=== PATIENT | female | born 1930 | race Caucasian/White ===

== ENCOUNTER 2016-11-13 20:40 | Emergency (ER) | payer MEDICARE, OTHER ==
[~2016-11-13] VITALS: Ht 134.6 cm; Wt 68.0 kg
[~2016-11-13 20:40] MED LIST: ACET325T53 GT; ASCO500T20 GT; CAT2PAT TD; ENAL10TA GT; FER300L GT; HYDR-1189 GT; MERI500 IV; METO-442 GT; METO50TA3 GT; MULT-1117 GT; PANT40SU2 GT; SACC250C3 GT
[2016-11-13 21:30] VITALS: BP 153/82; PULSE 60; RESP 18; TEMP 98.4; O2SAT 95
--- NOTE | 2016-11-13 21:30 | NUR ---
Placed in room 7 . Placed on laboratory monitor, blood pressure machine and pulse oximeter. To gown for exam. Side rails up.
--- NOTE | 2016-11-13 21:45 | NUR ---
Pt BIB ambulance from [facility] for G-tube replacement, according to daughter, pt had h/o pulling out her G-tube in the past, but this time the G-tube came out by itself . Pt disoriented, bilateral lower extremities amputated, catheter in place to prevent closure of G-tube access prior to ED arrival . No sign of distress. Will continue to monitor
--- NOTE | 2016-11-13 22:11 | NUR ---
MD rodarte at bedside examining pt
[2016-11-13] MEDS ORDERED: GASTROGRAFIN 120 ML ONE (22:26)
[2016-11-13 23:20] VITALS: BP 142/76; PULSE 66; RESP 16; TEMP 98.4; O2SAT 96
--- NOTE | 2016-11-13 23:20 | NUR ---
Patient given written and verbal discharge instructions and verbalizes understanding. ER MD Shaw discussed with patient the results and treatment provided. Patient in stable condition. ID arm band removed. No Rx given. Patient educated on pain management and to follow up with PMD. Pain Scale 0/10 Opportunity for questions provided and answered.
== END 2016-11-13 23:20 | disposition home or self-care (01) ==
LOC: SED 20:40
DX: Z43.1 Encounter for attention to gastrostomy (principal); J44.9 Chronic obstructive pulmonary disease, unspecified; F03.90 Unspecified dementia, unspecified severity, without behavioral disturbance, psychotic disturbance, mood disturbance, and anxiety; I12.9 Hypertensive chronic kidney disease with stage 1 through stage 4 chronic kidney disease, or unspecified chronic kidney disease; N18.9 Chronic kidney disease, unspecified
CPT/HCPCS: 43760; 74240; 99284; Q9963

== ENCOUNTER 2017-07-13 11:47 | Emergency (ER) | payer OTHER ==
[~2017-07-13] VITALS: Ht 157.5 cm; Wt 56.7 kg
[~2017-07-13 11:47] MED LIST changes: -METO50TA3 GT
[2017-07-13 12:02] VITALS: BP_SYST 156
[2017-07-13] MEDS ORDERED: GASTROGRAFIN 120 ML ONE (14:50)
[2017-07-13 16:26] VITALS: BP_SYST 139
== END 2017-07-13 16:26 | disposition home or self-care (01) ==
LOC: SED 11:47
DX: Z43.1 Encounter for attention to gastrostomy (principal); J44.9 Chronic obstructive pulmonary disease, unspecified; I12.9 Hypertensive chronic kidney disease with stage 1 through stage 4 chronic kidney disease, or unspecified chronic kidney disease; N18.9 Chronic kidney disease, unspecified; F03.90 Unspecified dementia, unspecified severity, without behavioral disturbance, psychotic disturbance, mood disturbance, and anxiety; Z79.899 Other long term (current) drug therapy
CPT/HCPCS: 43760; 74240; 99284; Q9963

== ENCOUNTER 2017-12-27 08:34 | Emergency (ER) | payer OTHER ==
[2017-12-27 08:34] VITALS: BP_SYST 149
[2017-12-27] MEDS ORDERED: GASTROGRAFIN 120 ML ONE (09:20)
[2017-12-27 09:58] LABS: BASOPHILS % (AUTO) 0.6 % (0.0-2.0); EOSINOPHILS # (AUTO) 0.1 K/uL (0.0-0.4); EOSINOPHILS % (AUTO) 2.8 % (0.0-4.0); HEMATOCRIT 39.6 % (36-48); HEMOGLOBIN 13.1 g/dL (12.0-16.0); LYMPHOCYTES % (AUTO) 18.6 % (20.5-51.5); MEAN CORPUSCULAR HEMOGLOBIN 30 pg (27-31); MEAN CORPUSCULAR HGB CONC 33 % (32-36); MEAN CORPUSCULAR VOLUME 92 fL (79.0-98.0); MONOCYTES # (AUTO) 0.5 K/uL (0.0-1.0); MONOCYTES % (AUTO) 10.5 % (1.7-9.3); NEUTROPHILS # (AUTO) 3.6 K/uL (1.8-7.7); NEUTROPHILS % (AUTO) 67.5 % (40.0-70.0); PLATELET COUNT (AUTO) 241 K/uL (130-430); RED BLOOD CELL COUNT(AUTO) 4.31 MIL/uL (4.2-6.2); RED CELL DISTRIBUTION WIDTH 13.9 % (9.0-15.0); WHITE BLOOD COUNT (AUTO) 5.2 K/uL (4.8-10.8)
[2017-12-27 10:19] LABS: ANION GAP 3 (5-15); CALCIUM 9.2 mg/dL (8.4-11.0); CHLORIDE 106 mmol/L (98-107); CREATININE 0.53 mg/dL (0.55-1.30); GLUCOSE 84 mg/dL (70-99); POTASSIUM 3.7 mmol/L (3.5-5.1); SODIUM SERUM 140 mmol/L (136-145); UREA NITROGEN, BLOOD 26 mg/dL (8-21)
[2017-12-27 10:20] LABS: PROTHROMBIN TIME 10.3 SECS (9.5-12.5)
[2017-12-27 10:24] LABS: ALANINE AMINOTRANSFERASE 15 U/L (12-78); ALBUMIN 2.7 g/dL (3.4-4.8); ASPARTATE AMINOTRANSFERASE 16 U/L (10-37); TOTAL BILIRUBIN 0.3 mg/dL (0.0-1.0)
[2017-12-27 11:54] VITALS: BP_SYST 127
== END 2017-12-27 11:54 | disposition home or self-care (01) ==
LOC: SED 08:34
DX: Z43.1 Encounter for attention to gastrostomy (principal); J44.9 Chronic obstructive pulmonary disease, unspecified; I12.9 Hypertensive chronic kidney disease with stage 1 through stage 4 chronic kidney disease, or unspecified chronic kidney disease; N18.9 Chronic kidney disease, unspecified; F03.90 Unspecified dementia, unspecified severity, without behavioral disturbance, psychotic disturbance, mood disturbance, and anxiety; Z79.899 Other long term (current) drug therapy
CPT/HCPCS: 36415; 43760; 74240; 80053; 85025; 85610; 85730; 99285; Q9963

== ENCOUNTER 2018-09-14 22:53 | Inpatient (IN) | payer OTHER ==
[~2018-09-14] VITALS: Ht 142.2 cm; Wt 58.5 kg
[2018-09-14 22:55] VITALS: BP_SYST 116
--- NOTE | 2018-09-14 22:55 | NUR ---
Placed in room 01. Placed on case monitor, blood pressure machine and pulse oximeter. To gown for exam. Side rails up. Report given to [facility].
[2018-09-14] MEDS ORDERED: NACL 0.9% 1,000 ML IV ONE (23:00)
--- NOTE | 2018-09-14 23:00 | NUR ---
Pt came to the ED via EMS from [facility] to the ED for AMS and hypotension. Per EMS, BP was 75/45 in the field and was given 250 mL which raised it to 94/60. Per EMS A&O x1. Per EMS denies falls. Due to pts AMS, pt is poor historian. No other complaints/injuries noted. Will cont. to monitor.
--- NOTE | 2018-09-14 23:05 | NUR ---
GABRIEL Lee at bedside examining patient.
--- NOTE | 2018-09-14 23:15 | NUR ---
# 16 FR Ratliff catheter with use of sterile technique. Immediate return of 500 cc yello urine noted. Bedside drainage bag placed below level of bladder. Urine sample collected and sent to lab. Pt tolerated procedure well. Patient arrived with ratliff in place, changed due to standard of practice prior to admission. Patient unable to toilet self.
[2018-09-14 23:31] LABS: BILIRUBIN,URINE NEGATIVE (NEGATIVE); BLOOD, URINE NEGATIVE (NEGATIVE); CLARITY/URINE HAZY (CLEAR); COLOR,URINE YELLOW (YELLOW); GLUCOSE,URINE NEGATIVE (NEGATIVE); KETONES,URINE NEGATIVE (NEGATIVE); LEUKOCYTE ESTERASE ,URINE NEGATIVE (NEGATIVE); NITRITE, URINE NEGATIVE (NEGATIVE); PH,URINE 6.5 (5.0-8.0); PROTEIN URINE NEGATIVE (NEGATIVE); UROBILINOGEN,URINE 0.2 (0.2-1.0)
[2018-09-14 23:37] LABS: ANION GAP 4 (5-15); CHLORIDE 108 mmol/L (98-107); CREATININE 1.18 mg/dL (0.55-1.30); GLUCOSE 129 mg/dL (70-99); POTASSIUM 4.7 mmol/L (3.5-5.1); SODIUM SERUM 141 mmol/L (136-145); UREA NITROGEN, BLOOD 34 mg/dL (8-21)
[2018-09-14 23:43] LABS: ALANINE AMINOTRANSFERASE 30 U/L (12-78); ALBUMIN 2.3 g/dL (3.4-4.8); ASPARTATE AMINOTRANSFERASE 15 U/L (10-37); TOTAL BILIRUBIN 0.2 mg/dL (0.0-1.0)
[2018-09-14 23:46] LABS: HEMATOCRIT 35.8 % (36-48); HEMOGLOBIN 11.8 g/dL (12.0-16.0); LYMPHOCYTES % (AUTO) 19.6 % (20.5-51.5); MEAN CORPUSCULAR HEMOGLOBIN 32 pg (27-31); MEAN CORPUSCULAR HGB CONC 33 % (32-36); MEAN CORPUSCULAR VOLUME 95 fL (79.0-98.0); MONOCYTES % (AUTO) 11.4 % (1.7-9.3); NEUTROPHILS % (AUTO) 65.5 % (40.0-70.0); PLATELET COUNT (AUTO) 190 K/uL (130-430); RED BLOOD CELL COUNT(AUTO) 3.76 MIL/uL (4.2-6.2); RED CELL DISTRIBUTION WIDTH 13.8 % (9.0-15.0); WHITE BLOOD COUNT (AUTO) 5.6 K/uL (4.8-10.8)
[2018-09-14 23:47] LABS: BASOPHILS % (AUTO) 0.4 % (0.0-2.0); EOSINOPHILS # (AUTO) 0.2 K/uL (0.0-0.4); EOSINOPHILS % (AUTO) 3.1 % (0.0-4.0); LYMPHOCYTES # (AUTO) 1.1 K/uL (1.0-5.5); MONOCYTES # (AUTO) 0.6 K/uL (0.0-1.0); NEUTROPHILS # (AUTO) 3.6 K/uL (1.8-7.7)
[2018-09-14 23:51] LABS: INR 1.1 (0.8-1.2); PROTHROMBIN TIME 11.2 SECS (9.5-12.5)
[2018-09-15] MEDS ORDERED: PIPERACILLIN/TAZO 3.375 GM in NS 50 ML IV ONE ×2
[2018-09-15] MEDS ORDERED: PIPERACILLIN/TAZOBACTAM 3.375 GM/VIAL (ZOSYN) IV ONE (00:24)
--- NOTE | 2018-09-15 00:55 | NUR ---
Pt started on zosyn IV per MD order. Tolerated well. WIll cont. to monitor.
[2018-09-15] MEDS ORDERED: NACL 0.9% 1,000 ML IV ONE (01:00)
--- NOTE | 2018-09-15 01:00 | NUR ---
Daughter gave number [phone] [phone]
--- NOTE | 2018-09-15 02:15 | NUR ---
Patient will be admitted to care of Dr. Astorga. Admitted to TELE unit. Will go to room 132C. Belongings list completed. Summary report printed. Report will be given at bedside.
[2018-09-15] MEDS ORDERED: ACETAMINOPHEN 325 MG TABLET PO PRN (02:30)
[2018-09-15] MEDS ORDERED: KCL 20 mEq in D5NS 1000 mL 1,000 ML IV SCH (02:30)
[2018-09-15 02:34] VITALS: BP_SYST 115
--- NOTE | 2018-09-15 02:34 | NUR ---
ADMISSION NOTE Received patient from ER via siri, received report from [facility]. Patient admitted with diagnosis of HYPOTENTION, DEHYDRATION, POSSIBLE SEPSIS. Patient oriented to hospital routine, call light, toileting and safety-patient verbalized understanding.
--- NOTE | 2018-09-15 02:34 | NUR ---
Transfer to Tele via ACLS protocol. Licensed nurse present. IV present no signs or symptoms of infiltration.
[2018-09-15] MEDS ORDERED: TYLL650 GT (02:57)
[2018-09-15] MEDS ORDERED: ENAL10TA GT (03:04)
[2018-09-15] MEDS ORDERED: HYDR-3606 GT (03:04)
[2018-09-15] MEDS ORDERED: CAT2PAT TD (03:04)
[2018-09-15 03:09] VITALS: BP_SYST 115
[2018-09-15] MEDS ORDERED: ACETAMINOPHEN 650 MG/20.3 ML UDC GT PRN (05:15)
[2018-09-15] MEDS ORDERED: ACETAMINOPHEN 325 MG TABLET GT SCH (05:15)
[2018-09-15] MEDS ORDERED: HYDROcodone/ACETAMIN 5-325 MG TAB (NORCO/ VICODIN) GT PRN (05:15)
[2018-09-15] MEDS: D5/0.45 NS 1,000 ML IV SCH ×3 (05:31→20:31)
[2018-09-15] MEDS: PANTOPRAZOLE GRANULES PACKET 40 MG GT SCH (06:18)
--- NOTE | 2018-09-15 06:30 | NUR ---
pt.received from [place].pt.presents asphasic;non-verbal status.pt.presents upper extremities contracted,lower extremites: amputations;rt.bka/lt.aka.no prosthesis present.pt.preset g-tube.pt.presents iv access;lt.forearm/rt.antecubital fossa.iv lock pt.requires o2 therapy;o2-administered@2l/mn via nasal cannuale.pt.presents dermatitis;profuse distribution.pt.presents denuded skin;rt.stump;posterior/inferior surface.i have attended to placement:opti-foam dsg. presents.reviewing the orders/pt.assessment.i have initiated the iv fluids. order to contine w/g-tube feed per facility med-list.nsg to await dietary to supply g-tube feed.pt.cleaned.pt.repositioned:q-2hrs per protocol.call light/telephone placed w/in the pt's reached.
[2018-09-15 07:01] LABS: ANION GAP 8 (5-15); CALCIUM 8.2 mg/dL (8.4-11.0); CHLORIDE 111 mmol/L (98-107); CREATININE 0.82 mg/dL (0.55-1.30); GLUCOSE 97 mg/dL (70-99); POTASSIUM 4.3 mmol/L (3.5-5.1); SODIUM SERUM 143 mmol/L (136-145); UREA NITROGEN, BLOOD 28 mg/dL (8-21)
[2018-09-15 07:11] LABS: HEMATOCRIT 42.1 % (36-48); RED BLOOD CELL COUNT(AUTO) 4.34 MIL/uL (4.2-6.2); WHITE BLOOD COUNT (AUTO) 8.6 K/uL (4.8-10.8)
[2018-09-15 07:12] LABS: BASOPHILS % (AUTO) 0.2 % (0.0-2.0); EOSINOPHILS # (AUTO) 0.2 K/uL (0.0-0.4); EOSINOPHILS % (AUTO) 1.8 % (0.0-4.0); LYMPHOCYTES # (AUTO) 0.6 K/uL (1.0-5.5); LYMPHOCYTES % (AUTO) 6.5 % (20.5-51.5); MEAN CORPUSCULAR HEMOGLOBIN 32 pg (27-31); MEAN CORPUSCULAR HGB CONC 33 % (32-36); MEAN CORPUSCULAR VOLUME 97 fL (79.0-98.0); MONOCYTES # (AUTO) 0.4 K/uL (0.0-1.0); MONOCYTES % (AUTO) 4.2 % (1.7-9.3); NEUTROPHILS # (AUTO) 7.5 K/uL (1.8-7.7); NEUTROPHILS % (AUTO) 87.3 % (40.0-70.0); PLATELET COUNT (AUTO) 176 K/uL (130-430); RED CELL DISTRIBUTION WIDTH 13.5 % (9.0-15.0)
[2018-09-15 07:13] LABS: ALANINE AMINOTRANSFERASE 29 U/L (12-78); ALBUMIN 2.3 g/dL (3.4-4.8); ASPARTATE AMINOTRANSFERASE 17 U/L (10-37); TOTAL BILIRUBIN 0.3 mg/dL (0.0-1.0)
--- NOTE | 2018-09-15 07:17 | NUR ---
Nutrition Update Tyshawn Scale 11 noted. Pt admitted for hypotension, dehydration, possible sepsis Diet: tube feeding BMI:28.9 kg/m2 RD to follow per nutrition care standards.
--- NOTE | 2018-09-15 07:47 | NUR ---
OPENING NOTE PT IN BED EYES CLOSED - EQUAL CHEST RISE NOTED, CALL LIGHT VISIBLY WITHIN REACH, BED ALARM IN PLACE WITH BED IN THE LOWEST POSITION.
[2018-09-15 08:00] VITALS: BP_SYST 141
[2018-09-15] MEDS ORDERED: CEFTRIAXONE SOD 1 GM/ DEXTROSE,ISO 50 ML PREMIX IV SCH (08:00)
[2018-09-15] MEDS: MULTIVITAMINS TAB 1 TABLET GT SCH (08:50)
[2018-09-15] MEDS: LACTOBACILLUS RHAMNOSUS GG 1 CAP CAPSULE GT SCH ×2 (08:50→20:31)
[2018-09-15] MEDS: ASCORBIC ACID 500 MG TABLET GT SCH (08:50)
[2018-09-15] MEDS ORDERED: cefTRIAXone 1 GM VIAL IV SCH (09:00)
[2018-09-15] MEDS: CEFTRIAXONE SOD 1 GM/ DEXTROSE,ISO 50 ML PREMIX IV SCH (09:11)
[2018-09-15] MEDS: FERROUS SULFATE 300 MG/5 ML UDC GT SCH ×2 (09:14→20:31)
--- NOTE | 2018-09-15 09:38 | NUR ---
am meds morning meds given via gtube, pt tolerated well, ivpb rocephin also hung at ths time. gtube feeding in place running at 40ml/hr per md orders.
--- NOTE | 2018-09-15 11:35 | NUR ---
Dietitian Recommendations *Recommend Jevity 1.2 at 50ml/hr, FWF 100ml Q6H via GT Provides: 1440 kcal, 67 gm protein and 1368ml free water daily. Meets: 81% of upper end of estimated calorie needs and 94% of lower end of estimated protein needs. Please see Nutritional Assessment for details. MCFP, RD
[2018-09-15 11:50] VITALS: BP_SYST 140
--- NOTE | 2018-09-15 12:32 | NUR ---
ROUNDS PT RESTING - EQUAL CHEST RISE NOTED, NO DISTRESS, SAFETY PRECAUTIONS MAINTAINED.
--- NOTE | 2018-09-15 15:55 | NUR ---
pt is in bed awake , no distress noted, safety maintained
--- NOTE | 2018-09-15 17:00 | NUR ---
ROUNDS PT ASLEEP, EQUAL CHEST RISE NOTED, SAFETY MAINTAINED.
[2018-09-15 18:12] VITALS: BP_SYST 132
--- NOTE | 2018-09-15 19:14 | NUR ---
CLOSING NOTE ALL NEEDS MET THROUGH SHIFT, SAFETY MAINTAINED, CARE ENDORSED TO COOPER APPRENTICE RN
--- NOTE | 2018-09-15 19:25 | NUR ---
OPENING NOTE RECEIVED CARE OF PT AND BEDSIDE REPORT. PT CONFUSED, SITTING IN BED. BREATHING IS UNLABORED TO 2L O2 VIA NASAL CANNULA. IVF INFUSING AT ORDERED RATE. TUBE FEEDING RUNNING AT 40 CC/HR. SAFETY PRECAUTIONS MAINTAINED: BED IN LOWEST POSITION, CALL LIGHT WITH PT, SIDE RAILS UPX3, BED ALARM ON, CLOSE TO NURSING STATION. WILL MONITOR
[2018-09-15 20:00] VITALS: BP_SYST 140
--- NOTE | 2018-09-15 20:31 | NUR ---
SCHEDULED MEDICATIONS SCHEDULED MEDICATIONS ADMINISTERED VIA GTUBE. GTUBE IS PATENT AND FLUSHING WELL. PT TOLERATED WELL. NO SIGNS OF DISTRESS. PT APPEARS COMFORTABLE. SAFETY PRECAUTIONS IN PLACE. WILL MONITOR.
--- NOTE | 2018-09-15 21:30 | NUR ---
FREE WATER FLUSH GTUBE IS FLUSHING WELL. NO SIGN OF DISTRESS NOTED. BREATHING IS UNLABORED TO O2 AT 2LITERS VIA NASAL CANNULA. WARD CATHETER IS DRAINING WELL TO GRAVITY. IVF INFUSING. SAFETY PRECAUTIONS IN PLACE. WILL MONITOR.
--- NOTE | 2018-09-15 23:30 | NUR ---
RN ROUNDS PT RESTING IN BED, CONFUSED AND AWAKE. BREATHING IS UNLABORED TO O2 AT 2 LITERS VIA NASAL CANNULA. IVF INFUSING ORDERED. TUBE FEEDING IS RUNNING AT 40 ML/HR. SAFETY PRECAUTIONS MAINTAINED. WILL MONITOR.
--- NOTE | 2018-09-16 01:35 | NUR ---
RN ROUNDS PT RESTING IN BED WITH EYES CLOSED. VISIBLE SYMMETRICAL RISE AND FALL OF CHEST TO O2 AT 2 LITERS VIA NASAL CANNULA. NO SIGNS OF DISTRESS, PT APPEARS COMFORTABLE. WARD CATHETER DRAINING WELL TO GRAVITY. TUBE FEEDING RUNNING ORDER. IVF INFUSING AT ORDERED RATE. SAFETY PRECAUTIONS IN PLACE. WILL MONITOR.
[2018-09-16 02:24] VITALS: BP_SYST 145
--- NOTE | 2018-09-16 03:30 | NUR ---
FREE WATER FLUSH PT RESTING IN BED, APPEARS COMFORTABLE. BREATHING IS UNLABORED TO OXYGEN AT 2 LITERS VIA NASAL CANNULA. PT GIVEN 100 ML FREE WATER FLUSH. GTUBE IS PATENT AND FLUSHING WELL. WARD CATHETER IS INTACT AND DRAINING WELL TO GRAVITY. IVF INFUSING, NO SIGN OF INFILTRATION AT IV SITE. TUBE FEEDING RUNNING AT ORDERED RATE. SAFETY PRECAUTIONS OBSERVED. WILL MONITOR.
[2018-09-16] MEDS: PANTOPRAZOLE GRANULES PACKET 40 MG GT SCH (05:59)
--- NOTE | 2018-09-16 06:00 | NUR ---
SCHEDULED PROTONIX SCHEDULED PROTONIX ADMINISTERED THROUGH GTUBE. GTUBE IS PATENT AND FLUSHING WELL. PT RESTING COMFORTABLY IN BED, NO S/S OF DISTRESS. BREATHING IS UNLABORED TO O2 AT 2 LITERS VIA NASAL CANNULA. WARD CATHETER IS DRAINING WELL TO GRAVITY. IVF INFUSING AT ORDERED RATE. TUBE FEEDING RUNNING ORDERED. SAFETY PRECAUTIONS IN PLACE. WILL MONITOR.
--- NOTE | 2018-09-16 06:32 | NUR ---
CLOSING NOTE ALL NEEDS MET THROUGHOUT SHIFT. SAFETY MAINTAINED. WILL ENDORSE CARE TO DAY SHIFT RN.
--- NOTE | 2018-09-16 07:12 | NUR ---
Opening Note patient resting in bed, eyes closed, breathing unlabored and symmetrical, no signs of distress at this time, safety precautions in place, call light and bedside table left within reach, room close to station, will continue to monitor
[2018-09-16 07:54] LABS: ALANINE AMINOTRANSFERASE 27 U/L (12-78); ALBUMIN 2.3 g/dL (3.4-4.8); ANION GAP 4 (5-15); ASPARTATE AMINOTRANSFERASE 23 U/L (10-37); CALCIUM 8.2 mg/dL (8.4-11.0); CHLORIDE 108 mmol/L (98-107); CREATININE 0.52 mg/dL (0.55-1.30); GLUCOSE 133 mg/dL (70-99); POTASSIUM 3.6 mmol/L (3.5-5.1); SODIUM SERUM 137 mmol/L (136-145); TOTAL BILIRUBIN 0.3 mg/dL (0.0-1.0); UREA NITROGEN, BLOOD 16 mg/dL (8-21)
[2018-09-16 07:56] LABS: HEMATOCRIT 35.5 % (36-48); HEMOGLOBIN 11.9 g/dL (12.0-16.0); MEAN CORPUSCULAR VOLUME 94 fL (79.0-98.0); RED BLOOD CELL COUNT(AUTO) 3.78 MIL/uL (4.2-6.2); WHITE BLOOD COUNT (AUTO) 3.6 K/uL (4.8-10.8)
[2018-09-16 07:57] LABS: BASOPHILS % (AUTO) 0.3 % (0.0-2.0); EOSINOPHILS # (AUTO) 0.1 K/uL (0.0-0.4); EOSINOPHILS % (AUTO) 1.5 % (0.0-4.0); LYMPHOCYTES # (AUTO) 0.4 K/uL (1.0-5.5); LYMPHOCYTES % (AUTO) 11.5 % (20.5-51.5); MEAN CORPUSCULAR HEMOGLOBIN 32 pg (27-31); MEAN CORPUSCULAR HGB CONC 34 % (32-36); MONOCYTES # (AUTO) 0.5 K/uL (0.0-1.0); MONOCYTES % (AUTO) 14.1 % (1.7-9.3); NEUTROPHILS # (AUTO) 2.6 K/uL (1.8-7.7); NEUTROPHILS % (AUTO) 72.6 % (40.0-70.0); PLATELET COUNT (AUTO) 167 K/uL (130-430); RED CELL DISTRIBUTION WIDTH 13.6 % (9.0-15.0)
--- NOTE | 2018-09-16 08:53 | NUR ---
IV RE-INSERTION: Patient is confused removed her IV cannula , Restarted on left wrist. Successfulafter 1 attempt. Resumed current IVF , Will observe for any signs of infiltration.
[2018-09-16] MEDS: LACTOBACILLUS RHAMNOSUS GG 1 CAP CAPSULE GT SCH ×2 (09:28→20:32)
[2018-09-16] MEDS: MULTIVITAMINS TAB 1 TABLET GT SCH (09:28)
[2018-09-16] MEDS: FERROUS SULFATE 300 MG/5 ML UDC GT SCH ×2 (09:28→20:26)
[2018-09-16] MEDS: ASCORBIC ACID 500 MG TABLET GT SCH (09:28)
[2018-09-16] MEDS: CEFTRIAXONE SOD 1 GM/ DEXTROSE,ISO 50 ML PREMIX IV SCH (09:29)
--- NOTE | 2018-09-16 09:45 | NUR ---
Medication Administration educated patient regarding meds, unable to verbalize understanding, g-tube had 0 residual, flushed before and after meds, IV site remains patent, no other needs at this time, safety precautions remain in place, will continue to monitor
[2018-09-16 09:52] VITALS: BP_SYST 179
--- NOTE | 2018-09-16 09:52 | NUR ---
Paged Dr. Acosta to report increased BP, will await call back
--- NOTE | 2018-09-16 11:05 | NUR ---
Spoke with Dr. Acosta & Pharmacy informed him of patient's BP and informed him of medications patient takes at home for BP. MD ordered med, spoke with pharmacy and [facility] stated that unable to administer sustained release through G-tube, gave recommendation, will inform MD
--- NOTE | 2018-09-16 11:40 | NUR ---
Paged Dr. Acosta at this time, awaiting call back
[2018-09-16] MEDS: D5/0.45 NS 1,000 ML IV SCH (11:53)
[2018-09-16 12:02] VITALS: BP_SYST 164
--- NOTE | 2018-09-16 12:05 | NUR ---
New Bag of Fluids Hung at this time, patient tolerated well, IV site remains patent, repositioned in bed, no complaints of pain she is calm at this time, safety precautions remain in place, will continue to monitor
[2018-09-16] MEDS ORDERED: METOPROLOL TARTRATE 25 MG TABLET GT ONE (13:00)
--- NOTE | 2018-09-16 14:06 | NUR ---
Spoke with Daughter Nida Calderon over the phone, updated her with patient status, no other questions at this time, informed she can call if she has further questions
--- NOTE | 2018-09-16 15:44 | NUR ---
Spoke with Corky Regarding Flu Status stated that patient has not received vaccine and that family has refused flu vaccine for patient, updated charge nurse Magdalena
[2018-09-16 16:24] VITALS: BP_SYST 155
--- NOTE | 2018-09-16 17:40 | NUR ---
Dr. Acosta Rounds Informed him of patient's increased BP, informed him that BP med was administered at 1300 and patient's BP remains elevated, verbalized understanding and stated will implement orders, also asked about DVT prophylaxis, stated will explore options for possible DVT prophylaxis
--- NOTE | 2018-09-16 18:48 | NUR ---
Closing Note patient resting in bed, awake and alert, no signs of distress, IV site patent and g-tube infusing, patient confused, safety precautions remain in place, bed alarm on, will endorse to farm boss nurse
--- NOTE | 2018-09-16 19:21 | NUR ---
OPENING NOTE RECEIVED CARE OF PT AND BEDSIDE REPORT. PT CONFUSED AND AWAKE, SITTING UP IN BED, NO S/S OF DISTRESS. PT BREATHING UNLABORED TO ROOM AIR. WARD CATHETER DRAINING WELL TO GRAVITY, TUBE FEEDING RUNNING AT ORDERED RATE, IVF INFUSING. SAFETY PRECAUTIONS IN PLACE: BED IN LOWEST POSITION, CALL LIGHT WITH PT, SIDE RAILS UP X 3, BED ALARM ON, CLOSE TO NURSING STATION. WILL MONITOR.
[2018-09-16 20:00] VITALS: BP_SYST 112
[2018-09-16] MEDS: ENALAPRIL MALEATE 10 MG TABLET (VASOTEC) GT SCH (20:32)
[2018-09-16] MEDS: METOPROLOL TARTRATE 25 MG TABLET GT SCH (20:32)
[2018-09-16] MEDS: cloNIDine HCL 0.2 MG/24 HR PATCH.TDWK TD SCH (20:33)
--- NOTE | 2018-09-16 22:00 | NUR ---
PULLED OUT IV PT CONFUSED AND PULLED OUT IV. SAFETY PRECAUTIONS MAINTAINED. WILL PLACE NEW IV.
--- NOTE | 2018-09-16 23:00 | NUR ---
IV RE-INSERTION: Restarted IV on LEFT FOREARM. Successful after MULTIPLE attempts. Resumed current IVF of D51/2NS and regulated @ 30 ML per hour. Will observe for any signs of infiltration. Addendum: 09/16/18 at 2317 by Christine Russ RN ADDENDUM: 24 GAUGE IV CATHETER PLACED.
--- NOTE | 2018-09-17 00:10 | NUR ---
NURSING NOTE PT AWAKE, SITTING UP IN BED, RESTLESS AND CONFUSED. IVF INFUSING AT ORDERED RATE. WARD CATHETER IS DRAINING WELL TO GRAVITY. SAFETY PRECAUTIONS MAINTAINED. WILL MONITOR.
[2018-09-17 00:38] VITALS: BP_SYST 158
--- NOTE | 2018-09-17 02:00 | NUR ---
RESTING PT RESTING IN BED, AWAKE AND CALM. IVF INFUSING ORDERED, TUBE FEEDING IS RUNNING AT 40 ML/HR, WARD CATHETER IS INTACT AND DRAINING WELL TO GRAVITY. NO S/S OF ACUTE DISTRESS. BREATHING IS UNLABORED TO ROOM AIR. SAFETY PRECAUTIONS MAINTAINED. WILL MONITOR.
[2018-09-17] MEDS: D5/0.45 NS 1,000 ML IV SCH (03:02)
--- NOTE | 2018-09-17 03:30 | NUR ---
FREE WATER FLUSH PT GIVEN 100 ML FREE WATER FLUSH VIA GTUBE. GTUBE IS PATENT AND FLUSHING WELL. PT IS RESTING, NO S/S OF DISTRESS, BREATHING IS UNLABORED TO ROOM AIR. SAFETY, ASPIRATION, AND PRESSURE PRECAUTIONS ARE IN PLACE. WILL MONITOR.
--- NOTE | 2018-09-17 05:08 | NUR ---
SLEEPING PT SLEEPING, APPEARS COMFORTABLE, NO S/S OF DISTRESS. VISIBLE SYMMETRICAL RISE AND FALL OF CHEST TO ROOM AIR. SKIN IS WARM AND DRY TO TOUCH. IVF INFUSING ORDERED, TUBE FEEDING IS RUNNING. WARD CATHETER IS INTACT AND DRAINING TO GRAVITY. SAFETY PRECAUTIONS IN PLACE. WILL MONITOR.
[2018-09-17] MEDS: PANTOPRAZOLE GRANULES PACKET 40 MG GT SCH (06:04)
--- NOTE | 2018-09-17 06:31 | NUR ---
CLOSING NOTE PT SLEEPING IN BED, EVEN RISE AND FALL OF CHEST BILATERALLY TO ROOM AIR, SKIN IS WARM AND DRY TO TOUCH. NO S/S OF DISTRESS. IVF INFUSING AT ORDERED RATE, NO SIGN OF INFILTRATION AT IV SITE. TUBE FEEDING RUNNING ORDERED, GTUBE IS PATENT AND FLUSHES WELL. WARD CATHETER IS INTACT AND DRAINING TO GRAVITY. SAFETY, ASPIRATION, AND PRESSURE PRECAUTIONS IN PLACE. ALL NEEDS MET DURING SHIFT. WILL CONTINUE TO MONITOR UNTIL PATIENT CARE IS ENDORSED TO ONCOMING DAY SHIFT RN.
[2018-09-17 07:54] VITALS: BP_SYST 152
--- NOTE | 2018-09-17 08:00 | NUR ---
am notes Pt sleeping in bed at this time, on room air, tolerating well. breathing even and unlabored. no acute distress noted. IVF infusing well.Bed alarm on. will monitor.
[2018-09-17] MEDS: ASCORBIC ACID 500 MG TABLET GT SCH (08:36)
[2018-09-17] MEDS: METOPROLOL TARTRATE 25 MG TABLET GT SCH ×2 (08:36→21:28)
[2018-09-17] MEDS: LACTOBACILLUS RHAMNOSUS GG 1 CAP CAPSULE GT SCH ×2 (08:36→21:29)
[2018-09-17] MEDS: FERROUS SULFATE 300 MG/5 ML UDC GT SCH ×2 (08:36→21:29)
[2018-09-17] MEDS: MULTIVITAMINS TAB 1 TABLET GT SCH (08:36)
[2018-09-17] MEDS: ENALAPRIL MALEATE 10 MG TABLET (VASOTEC) GT SCH ×2 (08:37→21:29)
[2018-09-17] MEDS: CEFTRIAXONE SOD 1 GM/ DEXTROSE,ISO 50 ML PREMIX IV SCH (08:37)
--- NOTE | 2018-09-17 09:16 | NUR ---
notes- Turned and repositioned. Pt open her eyes and went back to sleep. morning meds given via g tube. pt tolerated feeding at 40cc/hr. safety precaution observed. will monitor.
--- NOTE | 2018-09-17 10:00 | NUR ---
notes- pt had large soft bowel movement, patient was given bed bath by HOUSE CARPENTER.
--- NOTE | 2018-09-17 10:07 | NUR ---
Wound Evaluation: Wound Consult ordered for Low Tyshawn Score. Patient evaluated for a low Tyshawn score of 16. Patient was asleep, easily aroused, and received in a [place] bed with an Atmos-Air 9000 mattress. Patient is unable to turn in bed independently. 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 Recommend reposition patient side to side only every 2 hours with pillow support and off-load pressure areas with pillows for pressure re-distribution. Elevate, off-load and float bilateral residual limbs with pillows. Use moisture barrier cream on buttocks and other moisture susceptible areas QID and as needed for soiling. Perform skin care and monitor skin integrity Q shift. Place patient on a low air-loss mattress. Apply lotion to upper back.
--- NOTE | 2018-09-17 11:33 | NUR ---
notes- Pt in bed, family at bedside. update family of plan of care.
[2018-09-17 12:21] VITALS: BP_SYST 147
--- NOTE | 2018-09-17 13:21 | NUR ---
Nutrition F/U Admitting Diagnosis Hypotension, Dehydration, Possible sepsis Reviewed Pertinent Medical/Surgical Hx Medical Record Patient Family Primary RN Medical History Comment: PMH: COPD, BLE amputation, below the knee on the R side and above the knee on the L side per MD notes. Pt also found w/: metabolic encephalopathy, possible occult infection, Alzheimer's dementia, Peripheral Vascular Disease, HTN per MD notes. Subjective Information Pt seen resting in bed w/ family at bedside. +TF infusing per MD orders. Family had questions on pt's current EN regimen, RD answered questions. Per RN, pt is tolerating TF well w/ only 5ml residual this morning. Per EMR, abd is soft and non-distended w/ active bowel sounds. I/O: 820/2150 -1330ml, IV total intake 340ml per 12 hrs. TF intake 960ml per 24 hrs. Last BM 09/16/18 x1. Protein intake from current TF regimen is not adequate and pt may benefit from an increase in infusion rate to better meet estimated needs. Education is not appropriate. Current Diet Order/Nutrition Support Jevity 1.2 at 40ml/hr, FWF 100ml Q6H via GT Patient/Significant Other x 2 days Unable To Verbalize Education Provided Not Indicated Pertinent Medications culturelle, MVI, iron, protonix, D5%W/NaCl IV, VIT C Pertinent Labs BUN 16 WNL (improved), ALB 2.3 L, Ca 8.2 L, WBC 3.6 L, H/H 11.9 L/35.5 L, CRE 0.52 L, BG 133 H Height (Feet) 4 feet Height (Inches) 8.00 inches Weight (Pounds) 129 pounds (09/15) Bed scale wt: 137.3 lb (09/17/18) Weight (Calculated Kilograms) 58.689979 kilograms Patient Weight 58.513 kg Body Mass Index 28.92 kg/m2 %IBW 161 [place]/Adjusted Body Weight 80 lb, 36 kg; ABW BKA: 71 lb, 32 kg Recent Weight Change No - per EMR Weight Status Overweight Difficulty With: Chewing Swallowing Food Allergies unknown Last Bowel Movement September 16, 2018 x 1 Usual Diet At Home Jevity 1.2 1 can (8 oz) 4x daily per hard chart review Skin Integrity Comment: Tyshawn scale: 16; Per RN notes, erythema in anterior buttocks, anterior sacrum, posterior back. posterior thighs R/L, R stump. Bilateral generalized non-pitting edema. Current % PO N/A on EN support Estimated Energy Expenditure (kcals/day) 7403-6000 kcal/day (25-30 kcal/kg CBW for maintenance) Estimated Protein Required (g/day) 71-89 gm/day (1.2-1.5 gm/kg CBW for Geriatric maintenance) Estimated Fluid Required (l/day) 1.5 L/day (25ml/kg CBW for Geriatric maintenance) Problem/Etiology/Signs/Symptoms Increased nutritional needs r/t metabolic demands AEB low Tyshawn score and estimated protein-calorie needs. *ongoing Expected Outcomes/Goals Monitor EN tolerance and intake w/ goal of pt meeting at least 75% of estimated nutritional needs, labs trending WNL, normal GI function, skin integrity/wt maintenance. Dietitian Recommendations *Recommend Jevity 1.2 at 50ml/hr, FWF 100ml Q6H via GT Provides: 1440 kcal, 67 gm protein and 1368ml free water daily. Meets: 81% of upper end of estimated calorie needs and 94% of lower end of estimated protein needs. Follow Up High Risk: F/U in 2-3days
--- NOTE | 2018-09-17 13:29 | NUR ---
Dietitian Recommendations *Recommend Jevity 1.2 at 50ml/hr, FWF 100ml Q6H via GT Provides: 1440 kcal, 67 gm protein and 1368ml free water daily. Meets: 81% of upper end of estimated calorie needs and 94% of lower end of estimated protein needs. Please see nutrition f/u note for details. NIKKO, RD
--- NOTE | 2018-09-17 13:59 | NUR ---
Notes In bed awake, pulling her air conditioning mechanic. Trying to talk to patient and trying to put the monitor back, patient's gets agitated when you touch her. no distress noted. will monitor.
--- NOTE | 2018-09-17 16:10 | NUR ---
NOTES/MD ROUNDS In bed awake, No acute distress noted. Seen by Dr. Astorga at bedside. repositioned for comfort.
[2018-09-17 16:19] VITALS: BP_SYST 138
--- NOTE | 2018-09-17 18:31 | NUR ---
Notes In bed awake, no signs of distress noted. tolerating feeding well. ratliff draining well. all needs meet. needs attended. will endorse.
[2018-09-17 19:30] VITALS: BP_SYST 160
--- NOTE | 2018-09-17 19:30 | NUR ---
OPENING NOTE RECEIVED ENDORSEMENT REPORT FROM DAY SHIFT NURSE MONICA AT BEDSIDE. PT IS AOX1, RESTING IN BED COMFORTABLY. CHEST RISE EVEN AND UNLABORED. NO SOB NOTED. NO DISTRESS NOTED. NO S/S OF PAIN NOTED. IV ON LEFT FA 24G. IV SITE CLEAN DRY AND INTACT. IVF INFUSING AT ORDERED RATE. G-TUBE SITE CLEAN DRY AND INTACT. TUBE FEEDING INFUSING AT ORDERED RATE. PT ORIENTED TO HOSPITAL ROOM. PT INSTRUCTED TO USE CALL LIGHT OR ROOM PHONE TO CALL FOR ASSISTANCE. PT UNABLE TO VERBALIZE UNDERSTANDING. SAFETY MEASURES IN PLACE. CALL LIGHT/ ROOM PHONE WITHIN REACH, BED ALARM ON, BED RAILS UPX2, BEDSIDE TABLE WITHIN REACH, BED WHEELS LOCKED. NO OTHER NEEDS AT THIS TIME. WILL CONTINUE TO MONITOR PT AND CONTINUE POC.
[2018-09-17] MEDS: cloNIDine HCL 0.2 MG/24 HR PATCH.TDWK TD SCH (21:29)
--- NOTE | 2018-09-17 21:30 | NUR ---
RN ROUNDS PT RESTING IN BED COMFORTABLY. CHEST RISE EVEN AND UNLABORED. NO SOB NOTED. NO DISTRESS NOTED. NO S/S OF PAIN NOTED. IVF INFUSING AT ORDERED RATE. VITAL SIGNS WNL. BLOOD PRESSURE ELEVATED. SCHEDULED MEDICATIONS ADMINISTERED ORDERED. NO OTHER NEEDS AT THIS TIME. SAFETY MEASURES IN PLACE. WILL CONTINUE TO MONITOR PT AND CONTINUE POC.
--- NOTE | 2018-09-17 23:15 | NUR ---
RN ROUNDS PT RESTING IN BED COMFORTABLY. CHEST RISE EVEN AND UNLABORED. NO SOB NOTED. NO DISTRESS NOTED. NO S/S OF PAIN NOTED. IVF INFUSING AT ORDERED RATE. TUBE FEEDING INFUSING AT ORDERED RATE. NO NEEDS AT THIS TIME. SAFETY MEASURES IN PLACE. WILL CONTINUE TO MONITOR PT AND CONTINUE POC.
[2018-09-18] VITALS (7 sets, daily range): BP systolic 135–200
--- NOTE | 2018-09-18 01:15 | NUR ---
RN ROUNDS PT RESTING IN BED COMFORTABLY WITH EYES CLOSED. CHEST RISE EVEN AND UNLABORED. NO SOB NOTED. NO DISTRESS NOTED. NO S/S OF PAIN NOTED. IVF INFUSING AT ORDERED RATE. SAFETY MEASURES IN PLACE. WILL CONTINUE TO MONITOR PT AND CONTINUE POC.
--- NOTE | 2018-09-18 03:44 | NUR ---
RN ROUNDS PT RESTING IN BED COMFORTABLY WITH EYES CLOSED. CHEST RISE EVEN AND UNLABORED. NO SOB NOTED. NO DISTRESS NOTED. NO S/S OF PAIN NOTED. IVF INFUSING AT ORDERED RATE. NO NEEDS AT THIS TIME. SAFETY MEASURES IN PLACE. WILL CONTINUE TO MONITOR PT AND CONTINUE POC.
[2018-09-18] MEDS: D5/0.45 NS 1,000 ML IV SCH (05:35)
[2018-09-18] MEDS: PANTOPRAZOLE GRANULES PACKET 40 MG GT SCH (06:16)
--- NOTE | 2018-09-18 06:41 | NUR ---
CLOSING NOTE PT RESTING IN BED COMFORTABLY WITH EYES CLOSED. CHEST RISE EVEN AND UNLABORED. NO SOB NOTED. NO DISTRESS NOTED. NO S/S OF PAIN NOTED AT THIS TIME. IVF INFUSING AT ORDERED RATE. FC EMPTYING TO GRAVITY. TUBE FEEDING INFUSING AT ORDERED RATE. NO NEEDS AT THIS TIME. ALL NEEDS MET THROUGHOUT SHIFT. ALL SCHEDULED MEDICATIONS ADMINISTERED ORDERED. SAFETY MEASURES IN PLACE. WILL CONTINUE TO MONITOR PT AND CONTINUE POC. WILL ENDORSE CARE TO DAYS SHIFT NURSE.
--- NOTE | 2018-09-18 07:20 | NUR ---
OPENING NOTE At initial assessment, patient is asleep, no s/s of acute distress noted. Breathing even and unlabored. IV site on the RFA 22G patent and intact, D5 1/2 NS infusing at 75 ml/hr. Gtube in place, Gtube feeding running at 50 ml/hr and tolerating well. Safety and fall precautions in place, bed low and locked, alarm on, side rails up x3, call light within reach, will continue to monitor.
[2018-09-18] MEDS: ASCORBIC ACID 500 MG TABLET GT SCH (09:01)
[2018-09-18] MEDS: FERROUS SULFATE 300 MG/5 ML UDC GT SCH (09:01)
[2018-09-18] MEDS: MULTIVITAMINS TAB 1 TABLET GT SCH (09:01)
[2018-09-18] MEDS: ENALAPRIL MALEATE 10 MG TABLET (VASOTEC) GT SCH (09:01)
[2018-09-18] MEDS: LACTOBACILLUS RHAMNOSUS GG 1 CAP CAPSULE GT SCH (09:01)
[2018-09-18] MEDS: CEFTRIAXONE SOD 1 GM/ DEXTROSE,ISO 50 ML PREMIX IV SCH (09:01)
[2018-09-18] MEDS: METOPROLOL TARTRATE 25 MG TABLET GT SCH (09:02)
--- NOTE | 2018-09-18 10:36 | NUR ---
Dr sAtorga to see patient this afternoon, will write DC orders if appropriate. Addendum: 09/18/18 at 1043 by Yamini Davis RN Clarification: Called Dr Astorga regarding potential discharge. States he will be in to see patient this afternoon and will evaluate for potential discharge and will let us know. Patient is from [facility] and family wants her to return there.
--- NOTE | 2018-09-18 11:27 | NUR ---
Discharge Planning: DCP faxed pt referral to [facility] (f [phone] p [phone]) DCP to follow up. Addendum: 09/18/18 at 1442 by Karina Baltazar DP DCP received message from Kindra at [facility] ( p [phone]) pt will be accepted back to [facility] room 103B upon discharge. Addendum: 09/18/18 at 1529 by Karina Baltazar DP Patient DC to [facility] (f [phone] p [phone]) RM 103B, transportation arrange with [facility] ([phone]) Will Call, DCP made nurse aware.
--- NOTE | 2018-09-18 12:30 | NUR ---
ROUNDS Patient is resting with eyes closed. Breathing even and unlabored. IVF infusing as ordered. No s/s of acute distress. F/C in place with visible urine output. Tolerating G tube feeding, running as ordered. AM meds taken as ordered and tolerated well. Safety precautions observed, call light within reach, will continue to monitor.
--- NOTE | 2018-09-18 14:25 | NUR ---
ROUNDS Patient is resting with eyes closed but easily arousable. Breathing even and unlabored. Tolerating GTube feeding. No s/s of acute distress. IVF infusing as ordered. Safety precautions in place, call light within reach.
--- NOTE | 2018-09-18 16:15 | NUR ---
SPOKE WITH DR. ASTORGA Received call and spoke with Dr. Astorga regarding patient's condition. Per MD, patient is okay to D/C back to [facility]. Order to be entered by RN. Patient and daughter, Nida Yen aware.
--- NOTE | 2018-09-18 17:00 | NUR ---
ROUNDS Patient is awake, no s/s of acute distress noted. Breathing even and unlabored. Gtube feeding held for safety due to transfer to [facility] and sampler pickup time at 1930. Safety precautions in place. Call light within reach, will continue to monitor.
--- NOTE | 2018-09-18 18:41 | NUR ---
CLOSING NOTE Patient is awake, in stable condition, breathing even and unlabored. Denies any pain/discomfort at this time. Patient awaiting for transport at 1930 to [facility], report given to Melanie ([facility]). Jeffers catheter removed, catheter intact, patient tolerated well. Hygiene care and exit care provided. No further needs at this time. Safety and fall precautions observed, bed low and locked, side rails up x3, call light within reach, all needs met and anticipated throughout the shift, will endorse plan of care.
--- NOTE | 2018-09-18 19:25 | NUR ---
phoned paged dr mondragon REGARDING HTN 200/119 BP LEFT ARM .
--- NOTE | 2018-09-18 19:30 | NUR ---
NEW ORDERS DR SPENCE GIVE APRESOLINE 10 MG IPV X ONE DOSE & CONTINUE WITH DISCHARGE OF PATIENT ORDERED .
--- NOTE | 2018-09-18 20:05 | NUR ---
BP 112/96 HR 119 RR 20 TEMP 97.6 02 SAT 95 % ORDERS CARRIED , PATIENT TRANSFER [facility]IA [facility] PER DR JORDY ROMANO .
[2018-09-18] MEDS ORDERED: hydrALAZINE HCL 20 MG/ML VIAL ONE (20:21)
[2018-09-18] MEDS ORDERED: hydrALAZINE HCL 20 MG/ML VIAL IVP ONE (20:30)
== END 2018-09-18 20:53 | DRG 70 ==
LOC: SED 22:53 → STU 09-15 02:15 → SMU 09-17 18:18
PROVIDERS: ADMIT Family Medicine; ATTEND Family Medicine
DX: G93.41 Metabolic encephalopathy (principal); E43 Unspecified severe protein-calorie malnutrition; R65.11 Systemic inflammatory response syndrome (SIRS) of non-infectious origin with acute organ dysfunction; J44.0 Chronic obstructive pulmonary disease with (acute) lower respiratory infection; E87.2 Acidosis; G30.9 Alzheimer's disease, unspecified; F02.80 Dementia in other diseases classified elsewhere, unspecified severity, without behavioral disturbance, psychotic disturbance, mood disturbance, and anxiety; I73.9 Peripheral vascular disease, unspecified; E86.0 Dehydration; I12.9 Hypertensive chronic kidney disease with stage 1 through stage 4 chronic kidney disease, or unspecified chronic kidney disease; N18.9 Chronic kidney disease, unspecified; Z79.899 Other long term (current) drug therapy; Z96.653 Presence of artificial knee joint, bilateral; D64.9 Anemia, unspecified; J22 Unspecified acute lower respiratory infection; Z68.28 Body mass index [BMI] 28.0-28.9, adult
CPT/HCPCS: 36415; 70450-TC; 71045; 80053; 81003; 83605; 84484; 85025; 85610-TC; 85730-TC; 87040-TC; 87081; 87086; 93005; 96361; 96365; 96372; 96375; 99291; G0378; J0360; J0696; J2543; J7030; J7040

== ENCOUNTER 2019-10-01 06:49 | Inpatient (IN) | payer OTHER ==
[~2019-10-01] VITALS: Ht 104.1 cm; Wt 63.5 kg
[2019-10-01] VITALS (12 sets, daily range): BP systolic 110–196
[~2019-10-01 06:49] MED LIST changes: -HYDR-1189 GT; +HYDR-3607 GT; +TYLL650 GT
[2019-10-01 07:21] LABS: BASOPHILS # (AUTO) 0.1 K/uL (0.0-0.2); BASOPHILS % (AUTO) 0.4 % (0.0-2.0); EOSINOPHILS # (AUTO) 0.3 K/uL (0.0-0.4); EOSINOPHILS % (AUTO) 2.3 % (0.0-4.0); HEMATOCRIT 39.2 % (36-48); HEMOGLOBIN 12.4 g/dL (12.0-16.0); LYMPHOCYTES # (AUTO) 3.5 K/uL (1.0-5.5); LYMPHOCYTES % (AUTO) 23.5 % (20.5-51.5); MEAN CORPUSCULAR HEMOGLOBIN 29 pg (27-31); MEAN CORPUSCULAR HGB CONC 32 % (32-36); MEAN CORPUSCULAR VOLUME 93 fL (79.0-98.0); MONOCYTES # (AUTO) 1.1 K/uL (0.0-1.0); MONOCYTES % (AUTO) 7.2 % (1.7-9.3); NEUTROPHILS # (AUTO) 9.9 K/uL (1.8-7.7); NEUTROPHILS % (AUTO) 66.6 % (40.0-70.0); PLATELET COUNT (AUTO) 506 K/uL (130-430); RED BLOOD CELL COUNT(AUTO) 4.24 MIL/uL (4.2-6.2); RED CELL DISTRIBUTION WIDTH 17.2 % (9.0-15.0); WHITE BLOOD COUNT (AUTO) 14.9 K/uL (4.8-10.8)
[2019-10-01 07:41] LABS: ANION GAP 12 (5-15); CHLORIDE 100 mmol/L (98-107); CREATININE 1.18 mg/dL (0.55-1.30); GLUCOSE 292 mg/dL (70-99); POTASSIUM 4.9 mmol/L (3.5-5.1); SODIUM SERUM 136 mmol/L (136-145); UREA NITROGEN, BLOOD 58 mg/dL (8-21)
[2019-10-01 07:44] LABS: PROTHROMBIN TIME 10.4 SECS (9.5-12.5)
[2019-10-01 07:47] LABS: ALANINE AMINOTRANSFERASE 30 U/L (12-78); ALBUMIN 2.2 g/dL (3.4-4.8); ASPARTATE AMINOTRANSFERASE 30 U/L (10-37); TOTAL BILIRUBIN 0.2 mg/dL (0.0-1.0)
[2019-10-01] MEDS ORDERED: MOM PO (07:47)
[2019-10-01] MEDS ORDERED: LACT-96 PO (07:47)
[2019-10-01] MEDS ORDERED: BISA10SU61 RC (07:47)
[2019-10-01] MEDS ORDERED: LIDO700A30 TP (07:47)
[2019-10-01] MEDS ORDERED: COLL30OI2 TP (07:47)
[2019-10-01] MEDS ORDERED: COLL100 GT (07:47)
[2019-10-01] MEDS ORDERED: SULF1TAB48 GT (07:47)
[2019-10-01] MEDS ORDERED: ASCO500T20 GT (07:47)
[2019-10-01] MEDS ORDERED: ZINC50TA69 GT (07:47)
[2019-10-01] MEDS ORDERED: IPRA3AMP9 INH (07:47)
[2019-10-01] MEDS ORDERED: IPRATROPIUM/ALBUTEROL SULFATE 3 ML AMPUL.NEB (DUONEB) INH ONE (08:15)
[2019-10-01 09:25] LABS: BILIRUBIN,URINE 2+ (NEGATIVE); BLOOD, URINE 3+ (NEGATIVE); CLARITY/URINE CLOUDY (CLEAR); COLOR,URINE BROWN (YELLOW); GLUCOSE,URINE NEGATIVE (NEGATIVE); KETONES,URINE NEGATIVE (NEGATIVE); LEUKOCYTE ESTERASE ,URINE 2+ (NEGATIVE); NITRITE, URINE POSITIVE (NEGATIVE); PH,URINE 8.5 (5.0-8.0); PROTEIN URINE 3+ (NEGATIVE)
[2019-10-01 09:36] LABS: BACTERIA,URINE MODERATE /HPF (None Seen); MUCUS,URINE 1+ /LPF (None Seen); RBC,URINE >100 /HPF (0-3)
[2019-10-01] MEDS ORDERED: PIPERACILLIN/TAZO 3.375 GM in NS 50 ML IV ONE (10:15)
[2019-10-01] MEDS ORDERED: NACL 0.9% 2,000 ML IV ONE ×2 (10:15)
[2019-10-01] MEDS ORDERED: cefTRIAXone 1 GM IVPB PREMIX 50 ML IV ONE (10:15)
[2019-10-01] MEDS ORDERED: FUROSEMIDE 20 MG/2 ML VIAL IVP ONE ×2 (10:15→17:00)
[2019-10-01] MEDS ORDERED: PIPERACILLIN/TAZOBACTAM 3.375 GM/VIAL (ZOSYN) IV ONE (10:43)
[2019-10-01] MEDS ORDERED: MILK OF MAGNESIA 30 ML UDC PO PRN (11:15)
[2019-10-01] MEDS ORDERED: BISACODYL 10 MG/SUPPOSITORY RC PRN (11:15)
[2019-10-01] MEDS ORDERED: cloNIDine HCL 0.2 MG/24 HR PATCH.TDWK TD SCH (11:15)
[2019-10-01] MEDS ORDERED: GLUCOSE 15 GM GEL (in 37.5 GM TUBE) PO PRN (11:45)
[2019-10-01] MEDS ORDERED: D5W 1,000 ML IV PRN (11:45)
[2019-10-01] MEDS ORDERED: DEXTROSE 50%-WATER 50 ML DISP.SYRIN IVP PRN (11:45)
[2019-10-01] MEDS: INSULIN LISPRO SLIDING SCALE 100 UNITS/ML VIAL (humaLOG) SUBCUT PRN ×2 (12:58→18:18)
[2019-10-01] MEDS: IPRATROPIUM/ALBUTEROL SULFATE 3 ML AMPUL.NEB (DUONEB) INH SCH ×2 (13:00→19:35)
[2019-10-01] MEDS ORDERED: FLU VACC TS2019(65UP)/MF59C/PF 45 MCG/0.5 ML SYRINGE I.M. PRN (15:30)
[2019-10-01] MEDS: AZITHROMYCIN 500 MG in NS 250 ML IV SCH (15:32)
[2019-10-01] MEDS: HYDROcodone/ACETAMIN 5-325 MG TAB (NORCO/ VICODIN) PO PRN (16:15)
[2019-10-01] MEDS: PIPERACILLIN/TAZO 2.25G/DEX-IS 50 ML IV SCH ×2 (18:18→23:41)
[2019-10-01] MEDS ORDERED: ENALAPRIL MALEATE (VASOTEC) Non-Formular 10 MG TABLET GT SCH (21:00)
[2019-10-01] MEDS ORDERED: SACCHAROMYCES BOULARDII 250 MG CAPSULE (FLORASTOR) GT SCH (21:00)
[2019-10-01] MEDS ORDERED: COLLAGENASE 30 GM OINT Non-Formulary 30 GM OINT..GM. TP SCH (21:00)
[2019-10-01] MEDS: LACTOBACILLUS RHAMNOSUS GG 1 CAP CAPSULE GT SCH (21:11)
[2019-10-01] MEDS: LIDOCAINE PATCH 5% 1 EA TP SCH (21:17)
[2019-10-01] MEDS: BALSAM PERU/CASTOR OIL 60 GM OINT...G. TP SCH (21:17)
[2019-10-01] MEDS: DOCUSATE SODIUM 100 MG/10 ML UDC GT SCH (21:18)
[2019-10-01] MEDS ORDERED: hydrALAZINE HCL 10 MG TABLET PO PRN (22:15)
[2019-10-01] MEDS: ENALAPRIL MALEATE (VASOTEC) Non-Formular 10 MG TABLET PO SCH (23:40)
[2019-10-01] MEDS ORDERED: ENALAPRIL MALEATE (VASOTEC) Non-Formular 10 MG TABLET ONE (23:53)
[2019-10-02] VITALS (20 sets, daily range): BP systolic 132–204
[2019-10-02] MEDS: INSULIN LISPRO SLIDING SCALE 100 UNITS/ML VIAL (humaLOG) SUBCUT PRN ×3 (00:04→12:13)
[2019-10-02] MEDS: IPRATROPIUM/ALBUTEROL SULFATE 3 ML AMPUL.NEB (DUONEB) INH SCH ×4 (00:11→19:46)
[2019-10-02] MEDS ORDERED: hydrALAZINE HCL 10 MG TABLET ONE (02:15)
[2019-10-02] MEDS: ENALAPRIL MALEATE (VASOTEC) Non-Formular 10 MG TABLET PO SCH ×3 (05:07→21:33)
[2019-10-02] MEDS: PIPERACILLIN/TAZO 2.25G/DEX-IS 50 ML IV SCH ×3 (05:08→17:53)
[2019-10-02 05:33] LABS: BASOPHILS % (AUTO) 0.3 % (0.0-2.0); HEMATOCRIT 32.4 % (36-48); HEMOGLOBIN 10.7 g/dL (12.0-16.0); LYMPHOCYTES # (AUTO) 0.3 K/uL (1.0-5.5); LYMPHOCYTES % (AUTO) 3.6 % (20.5-51.5); MEAN CORPUSCULAR HEMOGLOBIN 30 pg (27-31); MEAN CORPUSCULAR HGB CONC 33 % (32-36); MEAN CORPUSCULAR VOLUME 90 fL (79.0-98.0); MONOCYTES # (AUTO) 0.5 K/uL (0.0-1.0); NEUTROPHILS # (AUTO) 8.6 K/uL (1.8-7.7); NEUTROPHILS % (AUTO) 91.1 % (40.0-70.0); PLATELET COUNT (AUTO) 341 K/uL (130-430); RED BLOOD CELL COUNT(AUTO) 3.61 MIL/uL (4.2-6.2); RED CELL DISTRIBUTION WIDTH 16.9 % (9.0-15.0); WHITE BLOOD COUNT (AUTO) 9.4 K/uL (4.8-10.8)
[2019-10-02] MEDS ORDERED: ONDANSETRON HCL 4 MG/2 ML VIAL IVP PRN (05:45)
[2019-10-02 06:03] LABS: ALBUMIN 2.1 g/dL (3.4-4.8); ANION GAP 10 (5-15); ASPARTATE AMINOTRANSFERASE 27 U/L (10-37); CALCIUM 8.6 mg/dL (8.4-11.0); CHLORIDE 104 mmol/L (98-107); CREATININE 1.03 mg/dL (0.55-1.30); GLUCOSE 170 mg/dL (70-99); POTASSIUM 3.7 mmol/L (3.5-5.1); SODIUM SERUM 138 mmol/L (136-145); THYROID STIMULATING HORMONE 1.33 uIu/mL (0.36-3.74); TOTAL BILIRUBIN 0.4 mg/dL (0.0-1.0); UREA NITROGEN, BLOOD 46 mg/dL (8-21)
[2019-10-02 06:06] LABS: TRIGLYCERIDES 79 mg/dL (30-150)
[2019-10-02 06:07] LABS: CHOLESTEROL 111 mg/dL (<200); HDL CHOLESTEROL 38 mg/dL (>55); LDL CHOLESTEROL 57 mg/dL (<100)
[2019-10-02] MEDS: LANSOPRAZOLE 30 MG CAPSULE.DR GT SCH (06:20)
[2019-10-02 06:26] LABS: ALANINE AMINOTRANSFERASE 18 U/L (12-78)
[2019-10-02] MEDS: FUROSEMIDE 20 MG/2 ML VIAL IVP SCH ×2 (08:44→21:35)
[2019-10-02] MEDS: METOPROLOL TARTRATE 50 MG TABLET GT SCH ×2 (08:47→21:34)
[2019-10-02] MEDS: AZITHROMYCIN 500 MG in NS 250 ML IV SCH (08:48)
[2019-10-02] MEDS: DOCUSATE SODIUM 100 MG/10 ML UDC GT SCH ×2 (08:49→21:32)
[2019-10-02] MEDS: ENOXAPARIN SODIUM 30 MG/0.3 ML SYRINGE SUBCUT SCH (08:50)
[2019-10-02] MEDS: LACTOBACILLUS RHAMNOSUS GG 1 CAP CAPSULE GT SCH ×2 (08:51→21:33)
[2019-10-02] MEDS ORDERED: METOPROLOL TARTRATE 50 MG TABLET GT SCH (09:00)
[2019-10-02] MEDS: LIDOCAINE PATCH 5% 1 EA TP SCH (21:35)
[2019-10-02] MEDS: BALSAM PERU/CASTOR OIL 60 GM OINT...G. TP SCH (21:37)
[2019-10-02] MEDS: hydrALAZINE HCL 10 MG TABLET PO PRN (22:03)
[2019-10-02] MEDS: HYDROcodone/ACETAMIN 5-325 MG TAB (NORCO/ VICODIN) PO PRN (22:04)
[2019-10-03] MEDS: PIPERACILLIN/TAZO 2.25G/DEX-IS 50 ML IV SCH ×4 (00:03→18:13)
[2019-10-03] MEDS: INSULIN LISPRO SLIDING SCALE 100 UNITS/ML VIAL (humaLOG) SUBCUT PRN ×4 (00:13→18:19)
[2019-10-03] MEDS: IPRATROPIUM/ALBUTEROL SULFATE 3 ML AMPUL.NEB (DUONEB) INH SCH ×4 (00:32→19:40)
[2019-10-03 01:56] VITALS: BP_SYST 161
[2019-10-03] MEDS: LANSOPRAZOLE 30 MG CAPSULE.DR GT SCH (05:49)
[2019-10-03] MEDS: ENALAPRIL MALEATE (VASOTEC) Non-Formular 10 MG TABLET PO SCH ×3 (06:00→22:09)
[2019-10-03 06:27] LABS: ALANINE AMINOTRANSFERASE 39 U/L (12-78); ALBUMIN 2.2 g/dL (3.4-4.8); ANION GAP 10 (5-15); ASPARTATE AMINOTRANSFERASE 101 U/L (10-37); CHLORIDE 104 mmol/L (98-107); CREATININE 1.07 mg/dL (0.55-1.30); GLUCOSE 173 mg/dL (70-99); SODIUM SERUM 141 mmol/L (136-145); TOTAL BILIRUBIN 0.3 mg/dL (0.0-1.0); UREA NITROGEN, BLOOD 40 mg/dL (8-21)
[2019-10-03 06:54] LABS: BASOPHILS % (AUTO) 0.3 % (0.0-2.0); HEMATOCRIT 33.7 % (36-48); HEMOGLOBIN 10.8 g/dL (12.0-16.0); LYMPHOCYTES # (AUTO) 0.5 K/uL (1.0-5.5); LYMPHOCYTES % (AUTO) 3.7 % (20.5-51.5); MEAN CORPUSCULAR HEMOGLOBIN 29 pg (27-31); MEAN CORPUSCULAR HGB CONC 32 % (32-36); MEAN CORPUSCULAR VOLUME 90 fL (79.0-98.0); MONOCYTES % (AUTO) 8.1 % (1.7-9.3); NEUTROPHILS # (AUTO) 11.3 K/uL (1.8-7.7); NEUTROPHILS % (AUTO) 87.9 % (40.0-70.0); PLATELET COUNT (AUTO) 405 K/uL (130-430); RED BLOOD CELL COUNT(AUTO) 3.74 MIL/uL (4.2-6.2); RED CELL DISTRIBUTION WIDTH 17.2 % (9.0-15.0); WHITE BLOOD COUNT (AUTO) 12.8 K/uL (4.8-10.8)
[2019-10-03 07:45] VITALS: BP_SYST 160
[2019-10-03] MEDS ORDERED: MUPIROCIN 2% TOPICAL OINTMENT 22 GM NS SCH (09:00)
[2019-10-03] MEDS: AZITHROMYCIN 500 MG in NS 250 ML IV SCH (09:56)
[2019-10-03] MEDS: DOCUSATE SODIUM 100 MG/10 ML UDC GT SCH ×2 (09:57→22:11)
[2019-10-03] MEDS: LACTOBACILLUS RHAMNOSUS GG 1 CAP CAPSULE GT SCH ×2 (09:58→22:09)
[2019-10-03] MEDS: METOPROLOL TARTRATE 50 MG TABLET GT SCH ×2 (10:01→22:11)
[2019-10-03] MEDS: FUROSEMIDE 20 MG/2 ML VIAL IVP SCH ×2 (10:03→22:10)
[2019-10-03] MEDS: ENOXAPARIN SODIUM 30 MG/0.3 ML SYRINGE SUBCUT SCH (10:05)
[2019-10-03 11:50] VITALS: BP_SYST 148
[2019-10-03] MEDS ORDERED: VANCOMYCIN HCL 1 GM/NS PREMIX 250 ML IV ONE (12:00)
[2019-10-03 13:12] VITALS: BP_SYST 125
[2019-10-03 16:22] VITALS: BP_SYST 159
[2019-10-03 21:45] VITALS: BP_SYST 173
[2019-10-03] MEDS: LIDOCAINE PATCH 5% 1 EA TP SCH (22:07)
[2019-10-03] MEDS: MUPIROCIN 2% TOPICAL OINTMENT 22 GM NS SCH (22:08)
[2019-10-03] MEDS: HYDROcodone/ACETAMIN 5-325 MG TAB (NORCO/ VICODIN) PO PRN (22:09)
[2019-10-03] MEDS: BALSAM PERU/CASTOR OIL 60 GM OINT...G. TP SCH (22:23)
[2019-10-04] VITALS (8 sets, daily range): BP systolic 121–183
[2019-10-04] MEDS: PIPERACILLIN/TAZO 2.25G/DEX-IS 50 ML IV SCH ×2 (00:24→06:19)
[2019-10-04] MEDS: INSULIN LISPRO SLIDING SCALE 100 UNITS/ML VIAL (humaLOG) SUBCUT PRN ×4 (00:40→18:03)
[2019-10-04] MEDS: IPRATROPIUM/ALBUTEROL SULFATE 3 ML AMPUL.NEB (DUONEB) INH SCH ×4 (01:21→20:24)
[2019-10-04] MEDS: LANSOPRAZOLE 30 MG CAPSULE.DR GT SCH (06:18)
[2019-10-04] MEDS: ENALAPRIL MALEATE (VASOTEC) Non-Formular 10 MG TABLET PO SCH ×3 (06:29→22:22)
[2019-10-04] MEDS: FUROSEMIDE 20 MG/2 ML VIAL IVP SCH ×2 (07:53→21:49)
[2019-10-04] MEDS: METOPROLOL TARTRATE 50 MG TABLET GT SCH ×2 (07:54→21:00)
[2019-10-04] MEDS: HYDROcodone/ACETAMIN 5-325 MG TAB (NORCO/ VICODIN) PO PRN ×2 (07:54→16:41)
[2019-10-04] MEDS: hydrALAZINE HCL 10 MG TABLET PO PRN (07:55)
[2019-10-04] MEDS: LACTOBACILLUS RHAMNOSUS GG 1 CAP CAPSULE GT SCH ×2 (09:17→21:48)
[2019-10-04] MEDS: AZITHROMYCIN 500 MG in NS 250 ML IV SCH (09:17)
[2019-10-04] MEDS: DOCUSATE SODIUM 100 MG/10 ML UDC GT SCH ×2 (09:17→21:48)
[2019-10-04] MEDS: ENOXAPARIN SODIUM 30 MG/0.3 ML SYRINGE SUBCUT SCH (09:18)
[2019-10-04] MEDS: MUPIROCIN 2% TOPICAL OINTMENT 22 GM NS SCH ×2 (09:19→21:51)
[2019-10-04 11:32] LABS: ALANINE AMINOTRANSFERASE 127 U/L (12-78); ALBUMIN 2.2 g/dL (3.4-4.8); ANION GAP 9 (5-15); ASPARTATE AMINOTRANSFERASE 148 U/L (10-37); CALCIUM 8.7 mg/dL (8.4-11.0); CHLORIDE 103 mmol/L (98-107); GLUCOSE 194 mg/dL (70-99); POTASSIUM 3.3 mmol/L (3.5-5.1); SODIUM SERUM 143 mmol/L (136-145); TOTAL BILIRUBIN 1.5 mg/dL (0.0-1.0); UREA NITROGEN, BLOOD 45 mg/dL (8-21)
[2019-10-04] MEDS: FLUCONAZOLE 100 mg/ NS 50 ML IV SCH (14:01)
[2019-10-04] MEDS: cefTRIAXone 1 GM in D5W 50 ML IV SCH (14:38)
[2019-10-04] MEDS ORDERED: POTASSIUM CHLORIDE 10 MEQ TAB.PRT.SR GT ONE (16:00)
[2019-10-04] MEDS: cloNIDine HCL 0.1 MG TABLET PO PRN (16:42)
[2019-10-04] MEDS ORDERED: FUROSEMIDE 20 MG/2 ML VIAL IVP ONE (17:45)
[2019-10-04] MEDS ORDERED: LORazepam 2 MG/ML VIAL IVP PRN (17:45)
[2019-10-04] MEDS ORDERED: LORazepam 2 MG/ML VIAL ONE (17:54)
[2019-10-04] MEDS ORDERED: FUROSEMIDE 20 MG/2 ML VIAL ONE (17:56)
[2019-10-04] MEDS: BALSAM PERU/CASTOR OIL 60 GM OINT...G. TP SCH (21:50)
[2019-10-04] MEDS: LIDOCAINE PATCH 5% 1 EA TP SCH (22:21)
[2019-10-04] MEDS ORDERED: LIDOCAINE PATCH 5% 1 EA TP ONE (22:26)
[2019-10-05] VITALS (33 sets, daily range): BP systolic 75–178
[2019-10-05] MEDS: INSULIN LISPRO SLIDING SCALE 100 UNITS/ML VIAL (humaLOG) SUBCUT PRN ×2 (00:04→07:14)
[2019-10-05] MEDS: IPRATROPIUM/ALBUTEROL SULFATE 3 ML AMPUL.NEB (DUONEB) INH SCH ×4 (01:28→19:38)
[2019-10-05] MEDS: hydrALAZINE HCL 10 MG TABLET PO PRN (04:46)
[2019-10-05 05:36] LABS: BASOPHILS # (AUTO) 0.1 K/uL (0.0-0.2); BASOPHILS % (AUTO) 0.5 % (0.0-2.0); HEMATOCRIT 35.8 % (36-48); HEMOGLOBIN 11.5 g/dL (12.0-16.0); LYMPHOCYTES # (AUTO) 0.6 K/uL (1.0-5.5); LYMPHOCYTES % (AUTO) 6.1 % (20.5-51.5); MEAN CORPUSCULAR HEMOGLOBIN 30 pg (27-31); MEAN CORPUSCULAR HGB CONC 32 % (32-36); MEAN CORPUSCULAR VOLUME 92 fL (79.0-98.0); MONOCYTES # (AUTO) 1.1 K/uL (0.0-1.0); MONOCYTES % (AUTO) 10.1 % (1.7-9.3); NEUTROPHILS # (AUTO) 8.6 K/uL (1.8-7.7); NEUTROPHILS % (AUTO) 83.3 % (40.0-70.0); PLATELET COUNT (AUTO) 281 K/uL (130-430); RED CELL DISTRIBUTION WIDTH 17.6 % (9.0-15.0); WHITE BLOOD COUNT (AUTO) 10.4 K/uL (4.8-10.8)
[2019-10-05] MEDS ORDERED: PROPOFOL DRIP 100 ML IV PRN (05:45)
[2019-10-05 05:54] LABS: ALANINE AMINOTRANSFERASE 277 U/L (12-78); ALBUMIN 2.3 g/dL (3.4-4.8); ANION GAP 7 (5-15); CALCIUM 8.6 mg/dL (8.4-11.0); CHLORIDE 105 mmol/L (98-107); CREATININE 0.98 mg/dL (0.55-1.30); GLUCOSE 160 mg/dL (70-99); SODIUM SERUM 143 mmol/L (136-145); UREA NITROGEN, BLOOD 52 mg/dL (8-21)
[2019-10-05] MEDS ORDERED: KETAMINE 30 MG/3 ML SYRINGE ONE (06:20)
[2019-10-05 07:04] LABS: POTASSIUM 2.7 mmol/L (3.5-5.1)
[2019-10-05 07:06] LABS: ASPARTATE AMINOTRANSFERASE 258 U/L (10-37); TOTAL BILIRUBIN 2.4 mg/dL (0.0-1.0)
[2019-10-05] MEDS: ENALAPRIL MALEATE (VASOTEC) Non-Formular 10 MG TABLET PO SCH (07:08)
[2019-10-05] MEDS: LANSOPRAZOLE 30 MG CAPSULE.DR GT SCH (07:56)
[2019-10-05] MEDS: DOCUSATE SODIUM 100 MG/10 ML UDC GT SCH ×2 (08:01→21:49)
[2019-10-05] MEDS: ACETAMINOPHEN 650 MG/20.3 ML UDC GT PRN ×3 (08:01→22:26)
[2019-10-05] MEDS: LACTOBACILLUS RHAMNOSUS GG 1 CAP CAPSULE GT SCH ×2 (08:01→21:49)
[2019-10-05] MEDS: METOPROLOL TARTRATE 50 MG TABLET GT SCH (08:02)
[2019-10-05] MEDS: FUROSEMIDE 20 MG/2 ML VIAL IVP SCH ×2 (08:02→21:50)
[2019-10-05] MEDS: MUPIROCIN 2% TOPICAL OINTMENT 22 GM NS SCH ×2 (08:03→21:50)
[2019-10-05] MEDS: ENOXAPARIN SODIUM 30 MG/0.3 ML SYRINGE SUBCUT SCH (08:03)
[2019-10-05] MEDS ORDERED: POTASSIUM CHLORIDE 20 MEQ/PKT PACKET GT ONE (08:30)
[2019-10-05] MEDS ORDERED: KCL 20 mEq in 100 mL (PREMIX) 100 ML IV ONE (08:30)
[2019-10-05] MEDS ORDERED: NS 500 ML IV ONE (08:30)
[2019-10-05] MEDS: NACL 0.9% 1,000 ML IV SCH ×2 (09:05→14:32)
[2019-10-05] MEDS ORDERED: POTASSIUM CHLORIDE 20 MEQ/PKT PACKET PO ONE ×2 (10:00→18:15)
[2019-10-05] MEDS ORDERED: ETOMIDATE 20 MG/ 10 ML VIAL (AMIDATE) IVP ONE (11:22)
[2019-10-05] MEDS ORDERED: ROCURONIUM BROMIDE 10 MG/ML (ZEMURON) IV ONE (11:22)
[2019-10-05] MEDS: FLUCONAZOLE 100 mg/ NS 50 ML IV SCH (14:02)
[2019-10-05] MEDS: cefTRIAXone 1 GM in D5W 50 ML IV SCH (14:02)
[2019-10-05] MEDS: HYDROcodone/ACETAMIN 5-325 MG TAB (NORCO/ VICODIN) PO PRN (14:30)
[2019-10-05] MEDS: LORazepam 2 MG/ML VIAL IVP PRN (14:31)
[2019-10-05 16:18] LABS: ANION GAP 7 (5-15); CALCIUM 8.3 mg/dL (8.4-11.0); CHLORIDE 109 mmol/L (98-107); CREATININE 1.08 mg/dL (0.55-1.30); GLUCOSE 127 mg/dL (70-99); POTASSIUM 3.2 mmol/L (3.5-5.1); SODIUM SERUM 148 mmol/L (136-145); UREA NITROGEN, BLOOD 59 mg/dL (8-21)
[2019-10-05] MEDS: LIDOCAINE PATCH 5% 1 EA TP SCH (21:49)
[2019-10-05] MEDS: BALSAM PERU/CASTOR OIL 60 GM OINT...G. TP SCH (21:50)
[2019-10-05] MEDS ORDERED: VANCOMYCIN HCL 500 MG in NS 100 ML IV ONE (23:00)
[2019-10-05] MEDS ORDERED: VANCOMYCIN HCL 500 MG/VIAL IV ONE (23:36)
[2019-10-06] VITALS (34 sets, daily range): BP systolic 109–186
[2019-10-06] MEDS: IPRATROPIUM/ALBUTEROL SULFATE 3 ML AMPUL.NEB (DUONEB) INH SCH ×4 (01:41→20:20)
[2019-10-06] MEDS: LORazepam 2 MG/ML VIAL IVP PRN ×4 (02:05→14:23)
[2019-10-06] MEDS: hydrALAZINE HCL 10 MG TABLET PO PRN (04:10)
[2019-10-06] MEDS: cloNIDine HCL 0.1 MG TABLET PO PRN ×2 (05:18→08:46)
[2019-10-06 05:31] LABS: BASOPHILS % (AUTO) 0.5 % (0.0-2.0); EOSINOPHILS # (AUTO) 0.1 K/uL (0.0-0.4); EOSINOPHILS % (AUTO) 0.6 % (0.0-4.0); HEMOGLOBIN 10.5 g/dL (12.0-16.0); LYMPHOCYTES # (AUTO) 1.2 K/uL (1.0-5.5); LYMPHOCYTES % (AUTO) 12.3 % (20.5-51.5); MEAN CORPUSCULAR HEMOGLOBIN 29 pg (27-31); MEAN CORPUSCULAR HGB CONC 32 % (32-36); MEAN CORPUSCULAR VOLUME 92 fL (79.0-98.0); MONOCYTES # (AUTO) 0.9 K/uL (0.0-1.0); MONOCYTES % (AUTO) 8.6 % (1.7-9.3); NEUTROPHILS # (AUTO) 7.7 K/uL (1.8-7.7); PLATELET COUNT (AUTO) 232 K/uL (130-430); RED BLOOD CELL COUNT(AUTO) 3.58 MIL/uL (4.2-6.2); RED CELL DISTRIBUTION WIDTH 17.8 % (9.0-15.0); WHITE BLOOD COUNT (AUTO) 9.9 K/uL (4.8-10.8)
[2019-10-06] MEDS: NACL 0.9% 1,000 ML IV SCH (05:34)
[2019-10-06] MEDS: ACETAMINOPHEN 650 MG/20.3 ML UDC GT PRN ×3 (05:36→14:21)
[2019-10-06] MEDS: LANSOPRAZOLE 30 MG CAPSULE.DR GT SCH (07:00)
[2019-10-06] MEDS: LACTOBACILLUS RHAMNOSUS GG 1 CAP CAPSULE GT SCH ×2 (08:45→21:09)
[2019-10-06] MEDS: DOCUSATE SODIUM 100 MG/10 ML UDC GT SCH ×2 (08:45→21:08)
[2019-10-06 08:46] LABS: ALANINE AMINOTRANSFERASE 314 U/L (12-78); ALBUMIN 1.9 g/dL (3.4-4.8); ANION GAP 8 (5-15); ASPARTATE AMINOTRANSFERASE 187 U/L (10-37); CALCIUM 8.5 mg/dL (8.4-11.0); CHLORIDE 111 mmol/L (98-107); CREATININE 0.86 mg/dL (0.55-1.30); GLUCOSE 138 mg/dL (70-99); LIPASE 387 U/L (73-393); POTASSIUM 3.7 mmol/L (3.5-5.1); SODIUM SERUM 147 mmol/L (136-145); TOTAL BILIRUBIN 0.6 mg/dL (0.0-1.0); UREA NITROGEN, BLOOD 60 mg/dL (8-21)
[2019-10-06] MEDS: FUROSEMIDE 20 MG/2 ML VIAL IVP SCH ×2 (08:47→21:08)
[2019-10-06] MEDS: MUPIROCIN 2% TOPICAL OINTMENT 22 GM NS SCH ×2 (08:47→21:09)
[2019-10-06] MEDS: ENOXAPARIN SODIUM 30 MG/0.3 ML SYRINGE SUBCUT SCH (08:50)
[2019-10-06] MEDS ORDERED: LINEZOLID 300 ML IV ONE (10:00)
[2019-10-06] MEDS: FLUCONAZOLE 100 mg/ NS 50 ML IV SCH (12:28)
[2019-10-06] MEDS: INSULIN LISPRO SLIDING SCALE 100 UNITS/ML VIAL (humaLOG) SUBCUT PRN (12:32)
[2019-10-06] MEDS: PIPERACILLIN/TAZO 4.5GM/DEX-IS 100 ML IV SCH ×2 (14:22→22:56)
[2019-10-06] MEDS: 0.45% NACL 1,000 ML IV SCH (14:22)
[2019-10-06] MEDS: LIDOCAINE PATCH 5% 1 EA TP SCH (21:07)
[2019-10-06] MEDS: LINEZOLID 300 ML IV SCH (21:07)
[2019-10-06] MEDS: BALSAM PERU/CASTOR OIL 60 GM OINT...G. TP SCH (21:09)
[2019-10-07] VITALS (33 sets, daily range): BP systolic 87–162
[2019-10-07] MEDS: INSULIN LISPRO SLIDING SCALE 100 UNITS/ML VIAL (humaLOG) SUBCUT PRN ×2 (00:23→23:58)
[2019-10-07] MEDS: LORazepam 2 MG/ML VIAL IVP PRN ×3 (00:24→23:33)
[2019-10-07] MEDS: IPRATROPIUM/ALBUTEROL SULFATE 3 ML AMPUL.NEB (DUONEB) INH SCH ×2 (01:44→19:35)
[2019-10-07] MEDS: ACETAMINOPHEN 650 MG/20.3 ML UDC GT PRN (02:34)
[2019-10-07 05:29] LABS: BASOPHILS % (AUTO) 0.3 % (0.0-2.0); EOSINOPHILS # (AUTO) 0.3 K/uL (0.0-0.4); EOSINOPHILS % (AUTO) 2.7 % (0.0-4.0); HEMATOCRIT 29.2 % (36-48); HEMOGLOBIN 9.3 g/dL (12.0-16.0); LYMPHOCYTES # (AUTO) 0.8 K/uL (1.0-5.5); MEAN CORPUSCULAR HEMOGLOBIN 30 pg (27-31); MEAN CORPUSCULAR HGB CONC 32 % (32-36); MEAN CORPUSCULAR VOLUME 93 fL (79.0-98.0); MONOCYTES # (AUTO) 0.6 K/uL (0.0-1.0); MONOCYTES % (AUTO) 5.9 % (1.7-9.3); NEUTROPHILS % (AUTO) 83.1 % (40.0-70.0); PLATELET COUNT (AUTO) 180 K/uL (130-430); RED BLOOD CELL COUNT(AUTO) 3.15 MIL/uL (4.2-6.2); RED CELL DISTRIBUTION WIDTH 18.1 % (9.0-15.0); WHITE BLOOD COUNT (AUTO) 9.6 K/uL (4.8-10.8)
[2019-10-07 05:57] LABS: ALANINE AMINOTRANSFERASE 174 U/L (12-78); ALBUMIN 1.7 g/dL (3.4-4.8); ANION GAP 7 (5-15); ASPARTATE AMINOTRANSFERASE 67 U/L (10-37); CALCIUM 8.1 mg/dL (8.4-11.0); CHLORIDE 111 mmol/L (98-107); CREATININE 0.92 mg/dL (0.55-1.30); GLUCOSE 121 mg/dL (70-99); SODIUM SERUM 148 mmol/L (136-145); TOTAL BILIRUBIN 0.6 mg/dL (0.0-1.0); UREA NITROGEN, BLOOD 51 mg/dL (8-21)
[2019-10-07 06:01] LABS: POTASSIUM 2.9 mmol/L (3.5-5.1)
[2019-10-07] MEDS ORDERED: POTASSIUM CHLORIDE 20 MEQ/PKT PACKET GT ONE (06:15)
[2019-10-07] MEDS ORDERED: KCL 20 mEq in 100 mL (PREMIX) 100 ML IV ONE (06:15)
[2019-10-07] MEDS: PIPERACILLIN/TAZO 4.5GM/DEX-IS 100 ML IV SCH ×3 (06:30→21:26)
[2019-10-07] MEDS: hydrALAZINE HCL 20 MG/ML VIAL IVP PRN (06:32)
[2019-10-07] MEDS: DOCUSATE SODIUM 100 MG/10 ML UDC GT SCH ×2 (08:01→21:21)
[2019-10-07] MEDS: LANSOPRAZOLE 30 MG CAPSULE.DR GT SCH (08:17)
[2019-10-07] MEDS: LACTOBACILLUS RHAMNOSUS GG 1 CAP CAPSULE GT SCH ×2 (08:17→21:22)
[2019-10-07] MEDS: LINEZOLID 300 ML IV SCH ×2 (08:18→21:23)
[2019-10-07] MEDS: FUROSEMIDE 20 MG/2 ML VIAL IVP SCH ×2 (08:19→21:24)
[2019-10-07] MEDS: ENOXAPARIN SODIUM 30 MG/0.3 ML SYRINGE SUBCUT SCH (08:20)
[2019-10-07] MEDS: MUPIROCIN 2% TOPICAL OINTMENT 22 GM NS SCH ×2 (08:20→21:24)
[2019-10-07] MEDS ORDERED: NS 250 ML IV ONE ×2 (09:00→09:45)
[2019-10-07] MEDS: METOPROLOL TARTRATE 25 MG TABLET PO SCH ×2 (09:00→21:22)
[2019-10-07] MEDS ORDERED: ALBUMIN HUMAN 25% 100 ML IV ONE (09:45)
[2019-10-07] MEDS ORDERED: NS 500 ML IV ONE (10:00)
[2019-10-07] MEDS: 0.45% NACL 1,000 ML IV SCH (10:14)
[2019-10-07] MEDS: FLUCONAZOLE 100 mg/ NS 50 ML IV SCH (12:28)
[2019-10-07] MEDS: LIDOCAINE PATCH 5% 1 EA TP SCH (21:25)
[2019-10-07] MEDS: BALSAM PERU/CASTOR OIL 60 GM OINT...G. TP SCH (21:26)
[2019-10-08] VITALS (35 sets, daily range): BP systolic 106–171
[2019-10-08] MEDS: IPRATROPIUM/ALBUTEROL SULFATE 3 ML AMPUL.NEB (DUONEB) INH SCH ×4 (00:29→19:35)
[2019-10-08] MEDS: PIPERACILLIN/TAZO 4.5GM/DEX-IS 100 ML IV SCH (05:35)
[2019-10-08] MEDS: 0.45% NACL 1,000 ML IV SCH (05:35)
[2019-10-08 05:49] LABS: EOSINOPHILS # (AUTO) 0.6 K/uL (0.0-0.4); HEMOGLOBIN 8.7 g/dL (12.0-16.0); MONOCYTES # (AUTO) 0.5 K/uL (0.0-1.0); PLATELET COUNT (AUTO) 153 K/uL (130-430); WHITE BLOOD COUNT (AUTO) 8.6 K/uL (4.8-10.8)
[2019-10-08 05:51] LABS: ALANINE AMINOTRANSFERASE 109 U/L (12-78); ANION GAP 3 (5-15); ASPARTATE AMINOTRANSFERASE 39 U/L (10-37); CALCIUM 8.6 mg/dL (8.4-11.0); CHLORIDE 108 mmol/L (98-107); CREATININE 0.82 mg/dL (0.55-1.30); GLUCOSE 112 mg/dL (70-99); SODIUM SERUM 140 mmol/L (136-145); TOTAL BILIRUBIN 0.5 mg/dL (0.0-1.0); UREA NITROGEN, BLOOD 49 mg/dL (8-21)
[2019-10-08 05:54] LABS: BASOPHILS % (AUTO) 0.4 % (0.0-2.0); EOSINOPHILS % (AUTO) 7.3 % (0.0-4.0); HEMATOCRIT 27.5 % (36-48); LYMPHOCYTES # (AUTO) 0.6 K/uL (1.0-5.5); LYMPHOCYTES % (AUTO) 6.6 % (20.5-51.5); MEAN CORPUSCULAR HEMOGLOBIN 30 pg (27-31); MEAN CORPUSCULAR HGB CONC 32 % (32-36); MEAN CORPUSCULAR VOLUME 94 fL (79.0-98.0); NEUTROPHILS # (AUTO) 6.8 K/uL (1.8-7.7); NEUTROPHILS % (AUTO) 79.7 % (40.0-70.0); RED BLOOD CELL COUNT(AUTO) 2.92 MIL/uL (4.2-6.2); RED CELL DISTRIBUTION WIDTH 18.3 % (9.0-15.0)
[2019-10-08] MEDS: INSULIN LISPRO SLIDING SCALE 100 UNITS/ML VIAL (humaLOG) SUBCUT PRN (06:13)
[2019-10-08] MEDS: LANSOPRAZOLE 30 MG CAPSULE.DR GT SCH (06:15)
[2019-10-08] MEDS ORDERED: POTASSIUM CHLORIDE 10 MEQ TAB.PRT.SR GT ONE (08:45)
[2019-10-08] MEDS ORDERED: POTASSIUM CHLORIDE 30 MEQ in NS 250 ML IV ONE (08:45)
[2019-10-08] MEDS: LINEZOLID 300 ML IV SCH ×2 (08:59→20:55)
[2019-10-08] MEDS: ENOXAPARIN SODIUM 30 MG/0.3 ML SYRINGE SUBCUT SCH (08:59)
[2019-10-08] MEDS: DOCUSATE SODIUM 100 MG/10 ML UDC GT SCH ×2 (09:00→19:42)
[2019-10-08] MEDS: LACTOBACILLUS RHAMNOSUS GG 1 CAP CAPSULE GT SCH ×2 (09:00→20:54)
[2019-10-08] MEDS: FUROSEMIDE 20 MG/2 ML VIAL IVP SCH ×2 (09:00→20:56)
[2019-10-08] MEDS: MUPIROCIN 2% TOPICAL OINTMENT 22 GM NS SCH (09:01)
[2019-10-08] MEDS: METOPROLOL TARTRATE 25 MG TABLET PO SCH ×2 (09:01→20:57)
[2019-10-08] MEDS: FLUCONAZOLE 100 mg/ NS 50 ML IV SCH (12:49)
[2019-10-08] MEDS: LORazepam 2 MG/ML VIAL IVP PRN (20:41)
[2019-10-08] MEDS: CEFEPIME 1 GM in D5W 50 ML IV SCH (20:55)
[2019-10-08] MEDS: LIDOCAINE PATCH 5% 1 EA TP SCH (20:57)
[2019-10-08] MEDS: BALSAM PERU/CASTOR OIL 60 GM OINT...G. TP SCH (21:00)
[2019-10-09] VITALS (36 sets, daily range): BP systolic 118–170
[2019-10-09] MEDS: IPRATROPIUM/ALBUTEROL SULFATE 3 ML AMPUL.NEB (DUONEB) INH SCH ×6 (01:10→20:03)
[2019-10-09] MEDS: 0.45% NACL 1,000 ML IV SCH ×2 (02:00→22:00)
[2019-10-09 05:02] LABS: BASOPHILS % (AUTO) 0.4 % (0.0-2.0); EOSINOPHILS # (AUTO) 0.4 K/uL (0.0-0.4); EOSINOPHILS % (AUTO) 6.4 % (0.0-4.0); HEMATOCRIT 26.8 % (36-48); HEMOGLOBIN 8.6 g/dL (12.0-16.0); LYMPHOCYTES # (AUTO) 0.7 K/uL (1.0-5.5); LYMPHOCYTES % (AUTO) 10.8 % (20.5-51.5); MEAN CORPUSCULAR HEMOGLOBIN 30 pg (27-31); MEAN CORPUSCULAR HGB CONC 32 % (32-36); MEAN CORPUSCULAR VOLUME 94 fL (79.0-98.0); MONOCYTES # (AUTO) 0.5 K/uL (0.0-1.0); MONOCYTES % (AUTO) 8.6 % (1.7-9.3); NEUTROPHILS # (AUTO) 4.5 K/uL (1.8-7.7); NEUTROPHILS % (AUTO) 73.8 % (40.0-70.0); PLATELET COUNT (AUTO) 147 K/uL (130-430); RED BLOOD CELL COUNT(AUTO) 2.87 MIL/uL (4.2-6.2); RED CELL DISTRIBUTION WIDTH 18.2 % (9.0-15.0); WHITE BLOOD COUNT (AUTO) 6.1 K/uL (4.8-10.8)
[2019-10-09 05:20] LABS: ALANINE AMINOTRANSFERASE 81 U/L (12-78); ALBUMIN 1.8 g/dL (3.4-4.8); ANION GAP 5 (5-15); ASPARTATE AMINOTRANSFERASE 32 U/L (10-37); CALCIUM 8.2 mg/dL (8.4-11.0); CHLORIDE 108 mmol/L (98-107); GLUCOSE 118 mg/dL (70-99); POTASSIUM 3.1 mmol/L (3.5-5.1); SODIUM SERUM 144 mmol/L (136-145); TOTAL BILIRUBIN 0.3 mg/dL (0.0-1.0); UREA NITROGEN, BLOOD 32 mg/dL (8-21)
[2019-10-09] MEDS: LANSOPRAZOLE 30 MG CAPSULE.DR GT SCH (06:35)
[2019-10-09] MEDS ORDERED: POTASSIUM CHLORIDE 40 MEQ, LIDOCAINE JECT 2% PF 100 MG 50 MG in NS 250 ML IV ONE (08:15)
[2019-10-09] MEDS: LACTOBACILLUS RHAMNOSUS GG 1 CAP CAPSULE GT SCH ×2 (08:34→20:26)
[2019-10-09] MEDS: DOCUSATE SODIUM 100 MG/10 ML UDC GT SCH ×2 (08:34→20:26)
[2019-10-09] MEDS: FUROSEMIDE 20 MG/2 ML VIAL IVP SCH ×2 (08:36→20:25)
[2019-10-09] MEDS: METOPROLOL TARTRATE 25 MG TABLET PO SCH ×2 (08:37→20:26)
[2019-10-09] MEDS: LINEZOLID 300 ML IV SCH ×2 (08:37→21:29)
[2019-10-09] MEDS: CEFEPIME 1 GM in D5W 50 ML IV SCH ×2 (08:37→20:24)
[2019-10-09] MEDS: ENOXAPARIN SODIUM 30 MG/0.3 ML SYRINGE SUBCUT SCH (08:39)
[2019-10-09] MEDS ORDERED: POTASSIUM CHLORIDE 20 MEQ TAB.PRT.SR PO ONE (09:00)
[2019-10-09] MEDS: FLUCONAZOLE 100 mg/ NS 50 ML IV SCH (13:16)
[2019-10-09] MEDS: POTASSIUM CHLORIDE 20 MEQ TAB.PRT.SR PO SCH (20:26)
[2019-10-09] MEDS: BALSAM PERU/CASTOR OIL 60 GM OINT...G. TP SCH (20:27)
[2019-10-09] MEDS: LIDOCAINE PATCH 5% 1 EA TP SCH (20:27)
[2019-10-09] MEDS: hydrALAZINE HCL 20 MG/ML VIAL IVP PRN (21:30)
[2019-10-09] MEDS: LORazepam 2 MG/ML VIAL IVP PRN (22:01)
[2019-10-10] VITALS (36 sets, daily range): BP systolic 104–164
[2019-10-10] MEDS: INSULIN LISPRO SLIDING SCALE 100 UNITS/ML VIAL (humaLOG) SUBCUT PRN ×2 (00:04→18:38)
[2019-10-10] MEDS: LORazepam 2 MG/ML VIAL IVP PRN (00:39)
[2019-10-10] MEDS: IPRATROPIUM/ALBUTEROL SULFATE 3 ML AMPUL.NEB (DUONEB) INH SCH ×4 (01:08→21:22)
[2019-10-10 05:42] LABS: BASOPHILS % (AUTO) 0.6 % (0.0-2.0)
[2019-10-10 05:48] LABS: MONOCYTES # (AUTO) 0.5 K/uL (0.0-1.0)
[2019-10-10 05:53] LABS: ALANINE AMINOTRANSFERASE 79 U/L (12-78); ALBUMIN 1.7 g/dL (3.4-4.8); ANION GAP 6 (5-15); ASPARTATE AMINOTRANSFERASE 43 U/L (10-37); CALCIUM 8.4 mg/dL (8.4-11.0); CHLORIDE 106 mmol/L (98-107); CREATININE 0.62 mg/dL (0.55-1.30); GLUCOSE 114 mg/dL (70-99); POTASSIUM 4.1 mmol/L (3.5-5.1); SODIUM SERUM 140 mmol/L (136-145); TOTAL BILIRUBIN 0.3 mg/dL (0.0-1.0); UREA NITROGEN, BLOOD 38 mg/dL (8-21)
[2019-10-10 05:56] LABS: TOTAL IRON BIND. CAPACITY 147 ug/dL (250-450)
[2019-10-10] MEDS: LANSOPRAZOLE 30 MG CAPSULE.DR GT SCH (06:03)
[2019-10-10 06:36] LABS: EOSINOPHILS # (AUTO) 0.2 K/uL (0.0-0.4); EOSINOPHILS % (AUTO) 4.4 % (0.0-4.0); HEMOGLOBIN 8.4 g/dL (12.0-16.0); LYMPHOCYTES # (AUTO) 0.8 K/uL (1.0-5.5); LYMPHOCYTES % (AUTO) 13.7 % (20.5-51.5); MEAN CORPUSCULAR HEMOGLOBIN 30 pg (27-31); MEAN CORPUSCULAR HGB CONC 32 % (32-36); MEAN CORPUSCULAR VOLUME 93 fL (79.0-98.0); MONOCYTES % (AUTO) 9.1 % (1.7-9.3); NEUTROPHILS # (AUTO) 4.1 K/uL (1.8-7.7); NEUTROPHILS % (AUTO) 72.2 % (40.0-70.0); PLATELET COUNT (AUTO) 159 K/uL (130-430); RED CELL DISTRIBUTION WIDTH 18.4 % (9.0-15.0); WHITE BLOOD COUNT (AUTO) 5.7 K/uL (4.8-10.8)
[2019-10-10] MEDS: DOCUSATE SODIUM 100 MG/10 ML UDC GT SCH (08:20)
[2019-10-10] MEDS: CEFEPIME 1 GM in D5W 50 ML IV SCH ×2 (08:30→22:05)
[2019-10-10] MEDS: ENOXAPARIN SODIUM 30 MG/0.3 ML SYRINGE SUBCUT SCH (08:30)
[2019-10-10] MEDS: FUROSEMIDE 20 MG/2 ML VIAL IVP SCH ×2 (08:31→22:04)
[2019-10-10] MEDS: METOPROLOL TARTRATE 25 MG TABLET PO SCH ×2 (08:32→22:09)
[2019-10-10] MEDS: LACTOBACILLUS RHAMNOSUS GG 1 CAP CAPSULE GT SCH ×2 (08:32→22:09)
[2019-10-10] MEDS: POTASSIUM CHLORIDE 20 MEQ TAB.PRT.SR PO SCH ×2 (08:34→22:09)
[2019-10-10] MEDS: 0.45% NACL 1,000 ML IV SCH (08:36)
[2019-10-10] MEDS: LINEZOLID 300 ML IV SCH ×2 (10:06→22:06)
[2019-10-10] MEDS: FLUCONAZOLE 100 mg/ NS 50 ML IV SCH (14:34)
[2019-10-10] MEDS: LIDOCAINE PATCH 5% 1 EA TP SCH (22:06)
[2019-10-10] MEDS: BALSAM PERU/CASTOR OIL 60 GM OINT...G. TP SCH (22:10)
[2019-10-11] VITALS (29 sets, daily range): BP systolic 123–161
[2019-10-11] MEDS: INSULIN LISPRO SLIDING SCALE 100 UNITS/ML VIAL (humaLOG) SUBCUT PRN ×2 (01:00→11:58)
[2019-10-11] MEDS: IPRATROPIUM/ALBUTEROL SULFATE 3 ML AMPUL.NEB (DUONEB) INH SCH ×4 (01:45→19:25)
[2019-10-11] MEDS: hydrALAZINE HCL 20 MG/ML VIAL IVP PRN (02:43)
[2019-10-11] MEDS: LORazepam 2 MG/ML VIAL IVP PRN (02:45)
[2019-10-11 05:20] LABS: ALANINE AMINOTRANSFERASE 64 U/L (12-78); ALBUMIN 1.6 g/dL (3.4-4.8); ANION GAP 6 (5-15); ASPARTATE AMINOTRANSFERASE 32 U/L (10-37); CALCIUM 8.4 mg/dL (8.4-11.0); CHLORIDE 102 mmol/L (98-107); CREATININE 0.66 mg/dL (0.55-1.30); GLUCOSE 133 mg/dL (70-99); POTASSIUM 3.8 mmol/L (3.5-5.1); SODIUM SERUM 133 mmol/L (136-145); TOTAL BILIRUBIN 0.4 mg/dL (0.0-1.0); UREA NITROGEN, BLOOD 39 mg/dL (8-21)
[2019-10-11] MEDS: LANSOPRAZOLE 30 MG CAPSULE.DR GT SCH (06:33)
[2019-10-11] MEDS ORDERED: FUROSEMIDE 40 MG/4 ML VIAL IVP ONE (08:15)
[2019-10-11] MEDS: FUROSEMIDE 20 MG/2 ML VIAL IVP SCH ×2 (09:00→21:28)
[2019-10-11] MEDS: ENOXAPARIN SODIUM 30 MG/0.3 ML SYRINGE SUBCUT SCH (09:00)
[2019-10-11] MEDS: LACTOBACILLUS RHAMNOSUS GG 1 CAP CAPSULE GT SCH ×2 (09:02→21:26)
[2019-10-11] MEDS: METOPROLOL TARTRATE 25 MG TABLET PO SCH ×2 (09:02→21:27)
[2019-10-11] MEDS: POTASSIUM CHLORIDE 20 MEQ TAB.PRT.SR PO SCH ×2 (09:02→21:26)
[2019-10-11] MEDS: CEFEPIME 1 GM in D5W 50 ML IV SCH ×2 (09:04→21:26)
[2019-10-11] MEDS: 0.45% NACL 1,000 ML IV SCH (09:11)
[2019-10-11] MEDS: LINEZOLID 300 ML IV SCH ×2 (09:52→21:26)
[2019-10-11] MEDS: BALSAM PERU/CASTOR OIL 60 GM OINT...G. TP SCH (21:29)
[2019-10-11] MEDS: LIDOCAINE PATCH 5% 1 EA TP SCH (21:32)
[2019-10-12] VITALS (31 sets, daily range): BP systolic 97–177
[2019-10-12] MEDS: IPRATROPIUM/ALBUTEROL SULFATE 3 ML AMPUL.NEB (DUONEB) INH SCH ×4 (01:28→19:25)
[2019-10-12 06:43] LABS: BASOPHILS % (AUTO) 0.6 % (0.0-2.0); EOSINOPHILS # (AUTO) 0.2 K/uL (0.0-0.4); EOSINOPHILS % (AUTO) 3.6 % (0.0-4.0); HEMATOCRIT 23.5 % (36-48); HEMOGLOBIN 7.7 g/dL (12.0-16.0); LYMPHOCYTES # (AUTO) 0.6 K/uL (1.0-5.5); LYMPHOCYTES % (AUTO) 11.1 % (20.5-51.5); MEAN CORPUSCULAR HEMOGLOBIN 30 pg (27-31); MEAN CORPUSCULAR HGB CONC 33 % (32-36); MEAN CORPUSCULAR VOLUME 93 fL (79.0-98.0); MONOCYTES # (AUTO) 0.6 K/uL (0.0-1.0); MONOCYTES % (AUTO) 10.9 % (1.7-9.3); NEUTROPHILS # (AUTO) 3.9 K/uL (1.8-7.7); NEUTROPHILS % (AUTO) 73.8 % (40.0-70.0); PLATELET COUNT (AUTO) 159 K/uL (130-430); RED BLOOD CELL COUNT(AUTO) 2.53 MIL/uL (4.2-6.2); RED CELL DISTRIBUTION WIDTH 18.1 % (9.0-15.0); WHITE BLOOD COUNT (AUTO) 5.3 K/uL (4.8-10.8)
[2019-10-12] MEDS: LANSOPRAZOLE 30 MG CAPSULE.DR GT SCH (07:03)
[2019-10-12 07:30] LABS: ALANINE AMINOTRANSFERASE 55 U/L (12-78); ALBUMIN 1.5 g/dL (3.4-4.8); ANION GAP 3 (5-15); ASPARTATE AMINOTRANSFERASE 26 U/L (10-37); CALCIUM 8.3 mg/dL (8.4-11.0); CHLORIDE 103 mmol/L (98-107); CREATININE 0.64 mg/dL (0.55-1.30); GLUCOSE 130 mg/dL (70-99); POTASSIUM 4.2 mmol/L (3.5-5.1); SODIUM SERUM 135 mmol/L (136-145); TOTAL BILIRUBIN 0.3 mg/dL (0.0-1.0); UREA NITROGEN, BLOOD 35 mg/dL (8-21)
[2019-10-12] MEDS: ENOXAPARIN SODIUM 30 MG/0.3 ML SYRINGE SUBCUT SCH (08:20)
[2019-10-12] MEDS: CEFEPIME 1 GM in D5W 50 ML IV SCH ×2 (08:20→20:46)
[2019-10-12] MEDS: LINEZOLID 300 ML IV SCH ×2 (08:24→20:46)
[2019-10-12] MEDS: FUROSEMIDE 20 MG/2 ML VIAL IVP SCH ×2 (08:25→20:47)
[2019-10-12] MEDS: POTASSIUM CHLORIDE 20 MEQ TAB.PRT.SR PO SCH ×2 (08:25→20:46)
[2019-10-12] MEDS: LACTOBACILLUS RHAMNOSUS GG 1 CAP CAPSULE GT SCH ×2 (08:25→20:46)
[2019-10-12] MEDS: METOPROLOL TARTRATE 25 MG TABLET PO SCH ×2 (08:26→21:47)
[2019-10-12] MEDS: 0.45% NACL 1,000 ML IV SCH (08:27)
[2019-10-12 09:11] LABS: FOLATE (FOLIC ACID) 18.3 ng/mL (>3.0)
[2019-10-12] MEDS: BALSAM PERU/CASTOR OIL 60 GM OINT...G. TP SCH (12:08)
[2019-10-12] MEDS: LORazepam 2 MG/ML VIAL IVP PRN ×3 (15:59→21:46)
[2019-10-12] MEDS ORDERED: ONDANSETRON HCL 4 MG/2 ML VIAL IVP PRN (18:15)
[2019-10-12] MEDS: MORPHINE 2 MG/ML INJ. SYRINGE IVP PRN ×2 (18:33→21:48)
[2019-10-12] MEDS: LIDOCAINE PATCH 5% 1 EA TP SCH (20:46)
[2019-10-13] VITALS (31 sets, daily range): BP systolic 81–137
[2019-10-13] MEDS: IPRATROPIUM/ALBUTEROL SULFATE 3 ML AMPUL.NEB (DUONEB) INH SCH ×2 (01:51→19:38)
[2019-10-13] MEDS: MORPHINE 2 MG/ML INJ. SYRINGE IVP PRN ×2 (03:10→13:01)
[2019-10-13] MEDS: LORazepam 2 MG/ML VIAL IVP PRN (03:11)
[2019-10-13 06:20] LABS: BASOPHILS % (AUTO) 0.6 % (0.0-2.0); EOSINOPHILS # (AUTO) 0.2 K/uL (0.0-0.4); EOSINOPHILS % (AUTO) 5.7 % (0.0-4.0); HEMATOCRIT 23.6 % (36-48); HEMOGLOBIN 7.6 g/dL (12.0-16.0); LYMPHOCYTES # (AUTO) 0.7 K/uL (1.0-5.5); LYMPHOCYTES % (AUTO) 15.5 % (20.5-51.5); MEAN CORPUSCULAR HEMOGLOBIN 30 pg (27-31); MEAN CORPUSCULAR HGB CONC 32 % (32-36); MEAN CORPUSCULAR VOLUME 93 fL (79.0-98.0); MONOCYTES # (AUTO) 0.6 K/uL (0.0-1.0); MONOCYTES % (AUTO) 13.5 % (1.7-9.3); NEUTROPHILS # (AUTO) 2.8 K/uL (1.8-7.7); NEUTROPHILS % (AUTO) 64.7 % (40.0-70.0); PLATELET COUNT (AUTO) 165 K/uL (130-430); RED BLOOD CELL COUNT(AUTO) 2.53 MIL/uL (4.2-6.2); WHITE BLOOD COUNT (AUTO) 4.4 K/uL (4.8-10.8)
[2019-10-13 06:25] LABS: ANION GAP 2 (5-15); CALCIUM 8.2 mg/dL (8.4-11.0); CHLORIDE 99 mmol/L (98-107); CREATININE 0.68 mg/dL (0.55-1.30); GLUCOSE 104 mg/dL (70-99); POTASSIUM 4.5 mmol/L (3.5-5.1); SODIUM SERUM 130 mmol/L (136-145); UREA NITROGEN, BLOOD 36 mg/dL (8-21)
[2019-10-13] MEDS: LANSOPRAZOLE 30 MG CAPSULE.DR GT SCH (07:14)
[2019-10-13] MEDS: 0.45% NACL 1,000 ML IV SCH (07:15)
[2019-10-13] MEDS: CEFEPIME 1 GM in D5W 50 ML IV SCH ×2 (08:11→21:31)
[2019-10-13] MEDS: LINEZOLID 300 ML IV SCH ×2 (08:11→21:32)
[2019-10-13] MEDS: POTASSIUM CHLORIDE 20 MEQ TAB.PRT.SR PO SCH ×2 (08:11→21:33)
[2019-10-13] MEDS: LACTOBACILLUS RHAMNOSUS GG 1 CAP CAPSULE GT SCH ×2 (08:11→21:31)
[2019-10-13] MEDS: METOPROLOL TARTRATE 25 MG TABLET PO SCH ×2 (08:12→21:33)
[2019-10-13] MEDS: ENOXAPARIN SODIUM 30 MG/0.3 ML SYRINGE SUBCUT SCH (08:13)
[2019-10-13] MEDS: FUROSEMIDE 20 MG/2 ML VIAL IVP SCH ×2 (09:00→21:31)
[2019-10-13] MEDS: LIDOCAINE PATCH 5% 1 EA TP SCH (21:33)
[2019-10-13] MEDS: BALSAM PERU/CASTOR OIL 60 GM OINT...G. TP SCH (21:34)
[2019-10-14] VITALS (34 sets, daily range): BP systolic 105–156
[2019-10-14] MEDS: MORPHINE 2 MG/ML INJ. SYRINGE IVP PRN (00:42)
[2019-10-14] MEDS: INSULIN LISPRO SLIDING SCALE 100 UNITS/ML VIAL (humaLOG) SUBCUT PRN ×2 (00:45→11:59)
[2019-10-14] MEDS: IPRATROPIUM/ALBUTEROL SULFATE 3 ML AMPUL.NEB (DUONEB) INH SCH ×4 (01:16→19:38)
[2019-10-14] MEDS: 0.45% NACL 1,000 ML IV SCH ×2 (02:00→08:38)
[2019-10-14] MEDS: LANSOPRAZOLE 30 MG CAPSULE.DR GT SCH (06:02)
[2019-10-14] MEDS: CEFEPIME 1 GM in D5W 50 ML IV SCH ×2 (08:32→20:35)
[2019-10-14] MEDS: METOPROLOL TARTRATE 25 MG TABLET PO SCH ×2 (08:33→20:36)
[2019-10-14] MEDS: POTASSIUM CHLORIDE 20 MEQ TAB.PRT.SR PO SCH ×2 (08:33→20:36)
[2019-10-14] MEDS: LACTOBACILLUS RHAMNOSUS GG 1 CAP CAPSULE GT SCH ×2 (08:33→20:36)
[2019-10-14] MEDS: LINEZOLID 300 ML IV SCH (08:33)
[2019-10-14] MEDS: FUROSEMIDE 20 MG/2 ML VIAL IVP SCH ×2 (08:34→20:37)
[2019-10-14] MEDS: ENOXAPARIN SODIUM 30 MG/0.3 ML SYRINGE SUBCUT SCH (08:35)
[2019-10-14] MEDS: LORazepam 2 MG/ML VIAL IVP PRN ×2 (11:00→17:31)
[2019-10-14] MEDS ORDERED: VANCOMYCIN HCL 1,000 MG in NS 250 ML IV SCH (13:00)
[2019-10-14] MEDS: LIDOCAINE PATCH 5% 1 EA TP SCH (20:36)
[2019-10-14] MEDS: BALSAM PERU/CASTOR OIL 60 GM OINT...G. TP SCH (20:37)
[2019-10-15] VITALS (28 sets, daily range): BP systolic 126–170
[2019-10-15] MEDS: IPRATROPIUM/ALBUTEROL SULFATE 3 ML AMPUL.NEB (DUONEB) INH SCH ×3 (00:04→13:55)
[2019-10-15 06:29] LABS: BASOPHILS % (AUTO) 0.5 % (0.0-2.0); EOSINOPHILS # (AUTO) 0.1 K/uL (0.0-0.4); HEMATOCRIT 24.3 % (36-48); HEMOGLOBIN 7.9 g/dL (12.0-16.0); LYMPHOCYTES # (AUTO) 0.5 K/uL (1.0-5.5); LYMPHOCYTES % (AUTO) 9.2 % (20.5-51.5); MEAN CORPUSCULAR HEMOGLOBIN 30 pg (27-31); MEAN CORPUSCULAR HGB CONC 33 % (32-36); MEAN CORPUSCULAR VOLUME 93 fL (79.0-98.0); MONOCYTES # (AUTO) 0.6 K/uL (0.0-1.0); NEUTROPHILS # (AUTO) 3.9 K/uL (1.8-7.7); NEUTROPHILS % (AUTO) 77.3 % (40.0-70.0); PLATELET COUNT (AUTO) 179 K/uL (130-430); RED BLOOD CELL COUNT(AUTO) 2.63 MIL/uL (4.2-6.2); RED CELL DISTRIBUTION WIDTH 17.9 % (9.0-15.0); WHITE BLOOD COUNT (AUTO) 5.1 K/uL (4.8-10.8)
[2019-10-15] MEDS: LANSOPRAZOLE 30 MG CAPSULE.DR GT SCH (06:49)
[2019-10-15 07:10] LABS: ANION GAP 4 (5-15); CALCIUM 8.7 mg/dL (8.4-11.0); CHLORIDE 101 mmol/L (98-107); CREATININE 0.59 mg/dL (0.55-1.30); GLUCOSE 142 mg/dL (70-99); POTASSIUM 4.7 mmol/L (3.5-5.1); SODIUM SERUM 134 mmol/L (136-145); UREA NITROGEN, BLOOD 39 mg/dL (8-21)
[2019-10-15] MEDS: LACTOBACILLUS RHAMNOSUS GG 1 CAP CAPSULE GT SCH ×2 (08:29→21:00)
[2019-10-15] MEDS: POTASSIUM CHLORIDE 20 MEQ TAB.PRT.SR PO SCH ×2 (08:30→21:00)
[2019-10-15] MEDS: METOPROLOL TARTRATE 25 MG TABLET PO SCH ×2 (08:30→21:00)
[2019-10-15] MEDS: CEFEPIME 1 GM in D5W 50 ML IV SCH (08:31)
[2019-10-15] MEDS: FUROSEMIDE 20 MG/2 ML VIAL IVP SCH ×2 (08:31→21:00)
[2019-10-15] MEDS: ENOXAPARIN SODIUM 30 MG/0.3 ML SYRINGE SUBCUT SCH (08:32)
[2019-10-15] MEDS: 0.45% NACL 1,000 ML IV SCH (18:36)
[2019-10-15] MEDS ORDERED: SODIUM CHLORIDE IV PRN (19:15)
[2019-10-15] MEDS ORDERED: MORPHINE IV PRN (19:15)
[2019-10-15] MEDS: LIDOCAINE PATCH 5% 1 EA TP SCH (21:00)
[2019-10-15] MEDS: BALSAM PERU/CASTOR OIL 60 GM OINT...G. TP SCH (21:00)
== END 2019-10-15 11:51 | disposition hospice, inpatient (51) | DRG 870 ==
LOC: SED 06:49 → SIC 10:16 → STU 10-02 18:47 → SIC 10-04 19:55
PROVIDERS: ADMIT Internal Medicine; ATTEND Internal Medicine
PROC: 5A09357 Assistance with Respiratory Ventilation, Less than 24 Consecutive Hours, Continuous Positive Airway Pressure (ICD-10-PCS; 2019-10-01)
PROC: B54MZZA Ultrasonography of Right Upper Extremity Veins, Guidance (ICD-10-PCS; 2019-10-01)
PROC: 05HY33Z Insertion of Infusion Device into Upper Vein, Percutaneous Approach (ICD-10-PCS; 2019-10-01)
PROC: 5A09357 Assistance with Respiratory Ventilation, Less than 24 Consecutive Hours, Continuous Positive Airway Pressure (ICD-10-PCS; 2019-10-02)
PROC: 0W9B3ZZ Drainage of Left Pleural Cavity, Percutaneous Approach (ICD-10-PCS; principal; 2019-10-03)
PROC: 5A09357 Assistance with Respiratory Ventilation, Less than 24 Consecutive Hours, Continuous Positive Airway Pressure (ICD-10-PCS; 2019-10-04)
PROC: 5A1955Z Respiratory Ventilation, Greater than 96 Consecutive Hours (ICD-10-PCS; 2019-10-05)
PROC: 0BH17EZ Insertion of Endotracheal Airway into Trachea, Via Natural or Artificial Opening (ICD-10-PCS; 2019-10-05)
PROC: 05H833Z Insertion of Infusion Device into Left Axillary Vein, Percutaneous Approach (ICD-10-PCS; 2019-10-08)
PROC: B54NZZA Ultrasonography of Left Upper Extremity Veins, Guidance (ICD-10-PCS; 2019-10-08)
PROC: 0BH17EZ Insertion of Endotracheal Airway into Trachea, Via Natural or Artificial Opening (ICD-10-PCS; 2019-10-10)
PROC: 5A1955Z Respiratory Ventilation, Greater than 96 Consecutive Hours (ICD-10-PCS; 2019-10-10)
DX: A41.9 Sepsis, unspecified organism (principal); E43 Unspecified severe protein-calorie malnutrition; J69.0 Pneumonitis due to inhalation of food and vomit; N17.0 Acute kidney failure with tubular necrosis; J96.21 Acute and chronic respiratory failure with hypoxia; E87.2 Acidosis; I42.9 Cardiomyopathy, unspecified; J44.1 Chronic obstructive pulmonary disease with (acute) exacerbation; N39.0 Urinary tract infection, site not specified; I13.0 Hypertensive heart and chronic kidney disease with heart failure and stage 1 through stage 4 chronic kidney disease, or unspecified chronic kidney disease; I50.32 Chronic diastolic (congestive) heart failure; Z68.43 Body mass index [BMI] 50.0-59.9, adult; E11.65 Type 2 diabetes mellitus with hyperglycemia; E11.51 Type 2 diabetes mellitus with diabetic peripheral angiopathy without gangrene; F02.80 Dementia in other diseases classified elsewhere, unspecified severity, without behavioral disturbance, psychotic disturbance, mood disturbance, and anxiety; G30.9 Alzheimer's disease, unspecified; I25.10 Atherosclerotic heart disease of native coronary artery without angina pectoris; R13.10 Dysphagia, unspecified; E11.22 Type 2 diabetes mellitus with diabetic chronic kidney disease; K21.9 Gastro-esophageal reflux disease without esophagitis; N18.9 Chronic kidney disease, unspecified; Z22.322 Carrier or suspected carrier of Methicillin resistant Staphylococcus aureus; Z74.01 Bed confinement status; Z86.73 Personal history of transient ischemic attack (TIA), and cerebral infarction without residual deficits; Z87.891 Personal history of nicotine dependence; Z89.511 Acquired absence of right leg below knee; Z89.612 Acquired absence of left leg above knee; Z93.1 Gastrostomy status; Z79.899 Other long term (current) drug therapy
CPT/HCPCS: 32555; 36415; 36600; 71045; 80048; 80053; 80061; 81000-TC; 82550-TC; 82607; 82746; 82803-TC; 82962; 83540-TC; 83550-TC; 83605; 83690-TC; 83880; 84443-TC; 84484; 85025; 85379; 85610-TC; 86710; 86738; 87040-TC; 87070-TC; 87081; 87086; 87205-TC; 87230-TC; 87449; 93005; 93306; 94002; 94003; 94640; 94660; 94760; 99285; C1729; C1751; C1769; J0360; J0456; J0692; J0696; J1450; J1650; J1940; J2020; J2060; J2270; J2405; J2543; J2704; J3370; J3480; J3490; J7030; J7040; J7050; J7060; P9046